=== PATIENT | female | born 1940 | race Caucasian/White ===

== ENCOUNTER 2023-04-27 09:14 | Inpatient (IN) | payer MEDICARE, SELFPAY ==
[2023-04-27] VITALS (10 sets, daily range): BP systolic 119–187; BP diastolic 58–96; PULSE 93–109; RESP 16–20; TEMP 36.3–36.7; O2SAT 92–98; BMI 26.0
--- NOTE | ~2023-04-27 | XR_ITS ---
EXAMINATION: XR hip RT 2V w AP pelvis DATE: 04/27/2023 10:00 INDICATION: Right hip pain. TECHNIQUE: An anteroposterior view of the pelvis and 2 views of right hip were obtained. COMPARISON: None. FINDINGS: There is a subcapital fracture of right femoral neck. The distal fracture fragment demonstr ates impaction. There is mild right hip osteoarthritis and advanced left hip osteoarthritis. There is moderate lumbar spondylosis. IMPRESSION: 1. Subcapital fracture of right femoral neck. 2. Mild right hip osteoarthritis and advanced left hip osteoarthritis. Reviewed, dictated and finalized at location A. ER CRAB
--- NOTE | ~2023-04-27 | CT_ITS ---
EXAMINATION: CT brain wo con DATE: 04/27/2023 10:06 INDICATION: Head injury. TECHNIQUE: Computed tomography (CT) of the head was performed without intravenous contrast. The mA wa s adjusted according to patient size. Iterative reconstruction technique was employed. The dose-lengt h product was 529.67 mGy-cm. COMPARISON: None FINDINGS: There is an old infarct in the left occipital lobe. There are scattered areas of low attenu ation in the cerebral white matter and deep dewitt nuclei. There is no intracranial hemorrhage, acute i nfarction, or abnormal intracranial mass lesion. The ventricles are normal in size. There is mild muc osal thickening in the paranasal sinuses. There are likely changes of right ocular lens replacement s urgery. The mastoid air cells are normal. IMPRESSION: 1. 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 2. Extensive nonspecific cerebral white matter disease and disease of the deep dewitt nuclei, which lik jamil represents chronic small vessel ischemic disease. Reviewed, dictated and finalized at location A. LINE REPAIRER IMPRESSION: 1. 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 2. Extensive nonspecific cerebral white matter disease and disease of the deep dewitt nuclei, which likely represents chronic small vessel ischemic disease.
--- NOTE | ~2023-04-27 | XR_ITS ---
EXAMINATION: XR surgery orthopedic DATE: 04/28/2023 8:45 SALES REPRESENTATIVE MEATS INDICATION: RIGHT HIP PINNING . TECHNIQUE: 4 fluoroscopic images of the right hip were obtained during right hip pinning performed by the surgeon. I was not present in the operating room. Fluoroscopy exposure time was 38.6 seconds. r Kerma 6.7894 mGy. DAP 0.1346 mGym2. COMPARISON: CT right hip 04/27/2023 FINDINGS: Mildly angulated and displaced subcapital fracture of the right femoral neck. 3 cannulated screws fix the fracture into near-anatomic alignment. IMPRESSION: Fluoroscopic documentation of right hip pinning. Please refer to the operative note for complete proc edural details . Reviewed, dictated and finalized at location K. S REPRESENTATIVE MEATS IMPRESSION: Fluoroscopic documentation of right hip pinning. Please refer to the operative note for complete procedural details .
--- NOTE | ~2023-04-27 | CT_ITS ---
Clinical Indication: Pulmonary embolus CT Scan of the Chest with Contrast: Technique: Contiguous sections were acquired throughout the chest after intravenous administration of 100 cc of Omnipaque 350. Dose reduction technique was used on this scan by utilizing automated expos ure control and iterative reconstruction technique. The dose-length product (DLP) was 209.11 mGy-cm. Findings: There is no evidence of any significant mediastinal, hilar or axillary lymphadenopathy. There is no f illing defect in the pulmonary arterial tree to suggest pulmonary embolus. There is no evidence of ao rtic dissection or aneurysm. There is no evidence of pleural or pericardial effusion. Calcified left lower lobe granuloma present. There are focal areas of minimal pulmonary scarring. Images through the upper abdomen reveal no abnormalities. Impression: No evidence of pulmonary embolus, aortic dissection, or aortic aneurysm. No significant pulmonary abnormality. Reviewed, dictated and finalized at [facility]. AL SERVICES TECHNICIAN Impression: No evidence of pulmonary embolus, aortic dissection, or aortic aneurysm. No significant pulmonary abnormality.
--- NOTE | ~2023-04-27 | XR_ITS ---
EXAMINATION: XR chest 1V portable INDICATION: Shortness of breath TECHNIQUE: Portable AP chest at 1136 hours COMPARISON: None available FINDINGS: There is a nodular opacity of the left lower lung zone. No pleural effusion or pneumothorax . The cardiomediastinal silhouette is normal. IMPRESSION: 1. Nodular opacity of the left lower lung zone which could be infectious or inflammatory however foll ow-up with CT of the chest is recommended. Reviewed, dictated and finalized at location F. OR PRINCIPAL IMPRESSION: 1. Nodular opacity of the left lower lung zone which could be infectious or inf lammatory however follow-up with CT of the chest is recommended.
--- NOTE | ~2023-04-27 | CT_ITS ---
EXAMINATION: CT hip RT wo con DATE: 04/27/2023 13:51 INDICATION: Right hip pain. Fall. TECHNIQUE: Computed tomography (CT) of the right hip was performed without intravenous contrast. Auto mated exposure control and iterative reconstruction technique were employed. The dose-length product was 191.29 mGy-cm. COMPARISON: CT 04/27/2023 FINDINGS: Bone alignment is normal. There is a subcapital fracture of right femoral neck. The distal fracture fragment demonstrates impaction and 10 degrees valgus angulation. There is moderate right hi p osteoarthritis. IMPRESSION: 1. Subcapital fracture of right femoral neck. 2. Moderate right hip osteoarthritis. Reviewed, dictated and finalized at location A. ING WORKER
--- NOTE | 2023-04-27 09:19 | ED.FALL ---
HPI - Fall General Chief Complaint: Fall <Aisha Jones APRN - Last Filed: 04/27/23 12:46> Stated Complaint: glf yest, R hip pain, ?hallucinations <Aisha Jones APRN - Last Filed: 04/27/23 12:46> Time Seen by Provider: 04/27/23 09:14 <Aisha Jones APRN - Last Filed: 04/27/23 12:46> Source: patient and EMS <Aisha Jones APRN - Last Filed: 04/27/23 12:46> Mode of arrival: EMS <Aisha Jones APRN - Last Filed: 04/27/23 12:46> Limitations: physical limitation <Aisha Jones APRN - Last Filed: 04/27/23 12:46> History of Present Illness HPI Narrative: patient is a pleasant 82 yo female with past medical hx as noted below who presents to the ED today via EMS for evaluation after a ground level fall when going down into her basement. patient states that that happened today actually. she was going downstairs to grab depends because she has been urinating a lot lately and is supposed to get surgery on her left hip in 20 days. she fell on her right hip. she told RN she didn't hit her head but she states she did strike her head but didn't pass out or lose consciousness. She took 2 tramadol after this incident for left hip pain and then started to hallucinate she states she thought her granddaughter was over however she really was not. she states she cannot bear weight on the right lower leg due to hip pain. denies numbness/tingling to upper or lower extremities, chest pain, shortness of breath, dizziness, vision changes, fever, chills, n/v/d, pain with urination, urinary odor, neck pain, back pain, numbness to her groin, loss of control of bowels bladder, or any other symptoms. <Aisha Jones APRN - Last Filed: 04/27/23 12:46> Related Data Allergies/Adverse Reactions: Allergies Allergy/AdvReac Type Severity Reaction Status Date / Time No Known Allergies Allergy Verified 04/27/23 09:19 <Aisha Jones APRN - Last Filed: 04/27/23 12:46> Review of Systems Review of Systems: CONSTITUTIONAL: Denies fever, chills, or sweats. EYES: Denies visual changes, redness, or discharge. CARDIOVASCULAR: Denies chest pain, palpitations, or edema. RESPIRATORY: Denies cough or dyspnea. GASTROINTESTINAL: Denies abdominal pain, nausea, vomiting, or diarrhea. MUSCULOSKELETAL: +right hip pain into groin. +chronic pain to left hip. NEUROLOGIC: Denies headache, numbness, or weakness. PSYCHIATRIC: Denies anxiety or depression. +hallucinations after taking double dose of tramadol. <Aisha Jones APRN - Last Filed: 04/27/23 12:46> All systems reviewed & are unremarkable except as noted in HPI and below <Aisha Jones APRN - Last Filed: 04/27/23 12:46> PMFSH Past Medical History Medical History: Medical History (Updated 04/27/23 @ 17:41 by Guanakito Kaur MD) Anemia Subcapital fracture of right hip <Aisha Jones APRN - Last Filed: 04/27/23 12:46> Social History Social History: Social History (Updated 04/27/23 @ 16:27 by Chne Marcum PA-C) Social History: Surrogate medical decision maker: Carol Banks, granddaughter. Code status: Full code. <Aisha Jones APRN - Last Filed: 04/27/23 12:46> Exam Narrative: GENERAL: Well-appearing, elderly female resting on stretcher, well-nourished, and in no acute distress. HEAD: Normocephalic, atraumatic. EYES: PERRLA and EOMI. ENT: Nares clear, no rhinorrhea or epistaxis. Mucous membranes moist. NECK: Supple. CHEST: Clear to auscultation. No respiratory distress. HEART: Regular rate and rhythm. No murmur heard. Normal peripheral pulses. ABDOMEN: Soft, nontender, nondistended, normal active bowel sounds. EXTREMITIES: +tenderness to the right hip/groin. no obvious deformity, able to still bend the extremity-cannot bear weight. No edema. SKIN: Warm, dry, no rash. NEURO: No focal deficits. Alert and oriented x3. distal NV intact to BLE. PSYCH: Normal mood and affect. <Aisha Jones, RIC - Last Filed: 04/27/23 12:
--- NOTE | 2023-04-27 10:39 | ECG_ITS ---
Measurements Intervals [place] Rate: 101 P: 55 OK: 174 QRS: 8 QRSD: 85 T: 29 QT: 368 QTc: 478 Interpretive Statements SINUS TACHYCARDIA NONSPECIFIC T-WAVE ABNORMALITY ABNORMAL RHYTHM ECG NO PREVIOUS ECG AVAILABLE FOR COMPARISON Electronically Signed On 04-27-2023 15:13:25 COTTON TIPPER by Freya Pierson M.D.
[2023-04-27 10:42] LABS: Basophils Percent Auto 0.3 % (0.2-1.2); Eosinophils Percent Auto 0.3 % (0-4.4); Hematocrit 35.4 % (37.0-47.0); Hemoglobin 11.5 g/dL (12.0-15.0); Immature Granulocyte Absolute 0.02 K/mm3 (0.00-0.031); Immature Granulocyte Percent A 0.3 % (0-0.5); Lymphocytes Absolute Auto 0.57 K/mm3 (0.9-3.2); Lymphocytes Percent Auto 7.2 % (18.3-44.2); Mean Corpuscular HGB Conc 32.5 g/dl (32-36); Mean Corpuscular Volume 101.4 fl (80-100); Mean Platelet Volume 10.9 fl (7.4-10.4); Monocytes Absolute Auto 0.4 K/mm3 (0.1-0.6); Monocytes Percent Auto 4.6 % (2.6-8.5); Neutrophils Absolute Auto 6.9 K/mm3 (1.3-6.7); Neutrophils Percent Auto 87.3 % (45.5-73.1); Platelet Count Result 185 k/mm3 (150-375); Red Blood Count 3.49 M/mm3 (4.2-5.4); Red Cell Distribution Width 12.8 % (11.5-14.5); White Blood Count 7.9 K/mm3 (4.5-10.0)
[2023-04-27] MEDS: LIDOCAINE 5% PATCH 1 PATCH TRANSDERM (10:42)
[2023-04-27] MEDS: fentaNYL CITRATE INJ (*CRX) 100 MCG/2 ML VIAL 50 MCG IV PUSH (10:47)
[2023-04-27 10:48] LABS: Appearance Urine Clear (Clear); Bacteria Urine None Seen /hpf; Bilirubin Urine 2+ (Negative); Color Urine Dark Yellow (Yellow); Glucose Urine UA Negative (Negative); Ketones Urine 2+ mg/dL (Negative); Leukocyte Esterase Ur Trace LEU/UL (Negative); Nitrate Urine Negative (Negative); Non Pathogenic Casts 0-2; Protein Urine 1+ mg/dL (Negative); Specific Grav Ur 1.022 (1.001-1.035); Squamous Epithelial Cell Urine None seen /hpf (Few); WBC Urine 0-5 /hpf; pH Urine 6.5 (5.0-9.0)
[2023-04-27 10:51] LABS: Alanine Aminotransferase 17 U/L (6-35); Alkaline Phosphatase 76 U/L (38-126); Anion Gap 9 mmol/L (8-16); Aspartate Amino Transferase 25 U/L (14-36); Bilirubin,Total 1.7 mg/dL (0.2-1.3); Blood Urea Nitrogen 14 mg/dL (7-17); Calcium 9.4 mg/dL (8.4-10.2); Carbon Dioxide 27 mmol/L (22-30); Chloride 101 mmol/L (98-107); Estimated CRCL calculation 46 ml/min; Estimated Glomerular Filt Rate > 60; Glucose 111 mg/dL (65-110); Potassium 3.3 mmol/L (3.4-5.0); Sodium 137 mmol/L (137-145)
[2023-04-27 10:57] LABS: Add Urine Microscopic? YES
--- NOTE | 2023-04-27 13:01 | PC.NURSE ---
this RN called dietary and ordered a lunch tray at this time
[2023-04-27] MEDS: MORPHINE SULFATE (*CRX) 2 MG/ML INJ IV PUSH ×3 (13:22→21:39)
[2023-04-27] MEDS: POTASSIUM CHLORIDE 20 MEQ ER TABLET 40 MEQ PO (14:26)
--- NOTE | 2023-04-27 15:35 | ADMGEN ---
This patient, Elsa Vega, was admitted to 3 [facility] Surg Room 330-02 @ 1535. Patient/family oriented to hospital policies and general routines including ID bracelet, bed and alarms, visiting hours, pain management, procedures, bathroom and other care routines, personal items, smoking policy, room service/diet, and visiting hours. Information on how to activate the Rapid Response Team has been discussed. Patient/Family are encouraged to report perceived risks to care and to ask questions if they do not understand what they are told or what they should do.
--- NOTE | 2023-04-27 16:22 | PM.IMHP ---
H&P: HPI History of Present Illness Date/Time: 04/27/23 16:45 Chief Complaint: Right hip pain after fall. Narrative: This is an 82-year-old female who presented to the emergency department via EMS from home for evaluation of right hip pain after fall. The patient provides the following history. She seems to be a bit confused regarding time frame but provides the following history. Last night or the night before she walked down to the basement to get something out of a closet and when she opened the door she tripped on something ?because it was dark in there.? She fell onto her right side and had immediate pain in the right hip. She was able to crawl up stairs where she took 2 tramadol which she was recently prescribed for pain in her left hip which in fact is scheduled to be replaced in the coming weeks at [facility]. She had never taken 2 tramadol before and she tells me that she had some hallucinations after taking the medication. Today she apparently called her granddaughter who brought her in for evaluation due to ongoing pain and difficulties bearing weight. She denied head trauma and loss of consciousness in the fall and reports no other injuries. Her vital signs were stable on arrival to the emergency department. Imaging showed a subcapital fracture of the right femoral neck and she is being admitted in this setting for pain control and orthopedic consultation. Review of Systems Review of Systems: Twelve systems were reviewed. No recent cold or flu symptoms. She denies fever, chills, and sweats. No chest or pleuritic pain. She denies exertional chest pain. No orthopnea, paroxysmal nocturnal dyspnea, or lower extremity edema. She denies history of venous thromboembolism. Except as documented, all other systems were reviewed and are negative. [facility] Past Medical History Medical History (Updated 04/27/23 @ 23:52 by Chen Marcum PA-C) Anemia Depression Subcapital fracture of right hip Surgical History Surgical History (Updated 04/27/23 @ 23:52 by Chen Marcum PA-C) No history of major surgery within 1 month Family History Family History (Updated 04/27/23 @ 23:52 by Chen Marcum PA-C) Other Family history unknown Social History Social History Social History: Surrogate medical decision maker: Carol Banks, granddaughter. Code status: Full code. Smoking status: Former smoker Alcohol intake: current Substance use: never Substance use type: does not use Do You Feel Safe in your Home?: Yes Lack of Transportation: No Lack of Food: Never True Current Housing: I Have Housing Concerned About Future Housing: No Difficulty Paying Gas/Electric Bills: No Difficulty Paying for Meds: No Currently Unemployed: No Education: Decline to Answer Difficulty w/ Childcare or Family Care: No Spiritual care concerns: No Meds Home Medications and Allergies Home Medications Medication Instructions Recorded Confirmed Type gabapentin 300 mg capsule 300 mg PO DAILY 04/27/23 04/27/23 History gabapentin 300 mg capsule 600 mg PO QHS 04/27/23 04/27/23 History sertraline 100 mg tablet 100 mg PO DAILY 04/27/23 04/27/23 History Allergies Allergy/AdvReac Type Severity Reaction Status Date / Time No Known Allergies Allergy Verified 04/27/23 09:19 Vital Signs Vital Signs - 24 hr 04/27/23 09:13 04/27/23 10:43 04/27/23 11:16 Temperature 98.0 F Pulse Rate 106 H 102 H 93 Respiratory Rate 18 16 18 Blood Pressure 185/79 H 119/96 H 187/83 H Pulse Oximetry 95 96 98 Oxygen Delivery Room Air 04/27/23 12:21 04/27/23 12:58 04/27/23 14:59 Temperature Pulse Rate 97 103 H 109 H Respiratory Rate 18 18 17 Blood Pressure 165/71 H 165/71 H 147/58 H Pulse Oximetry 95 93 95 Oxygen Delivery 04/27/23 15:56 Temperature 98.1 F Pulse Rate 105 H Respiratory Rate 18 Blood Pressure 146/72 H Pulse Oximetry
--- NOTE | 2023-04-27 17:36 | PM.CNOR ---
Assessment and Plan Assessment and plan (1) Subcapital fracture of right hip: Qualifiers: Encounter type: initial encounter Fracture type: closed Qualified Code(s): S72.011A - Unspecified intracapsular fracture of right femur, initial encounter for closed fracture Code(s): S72.011A - Unspecified intracapsular fracture of right femur, initial encounter for closed fracture Status: Acute Plan 82-year-old female with an impacted right subcapital femoral neck fracture. I discussed the injury with her. Plan for pinning in-situ right subcapital femoral neck fracture tomorrow. Risks and potential complications were discussed in detail and questions answered. I did discuss the rehabilitation process with her. She was due to have her left hip replaced in the next few weeks so that will clearly need be put off for the next several months. Thank you for the consultation. History of Present Illness HPI Consult date: 04/27/23 Chief complaint: acte femoral head fracture Narrative: This document created with [id number] technology and is subject to technology sales consultant irregularities. 82-year-old female who fell yesterday evening at her home. She was evaluated today subcapital fracture. No other injuries this occurrence. History of anemia. Does not take Rx medication on a regular basis. Review of Systems Constitutional: Constitutional: Reports no additional constitutional complaints, Denies excessive sweating and Denies fatigue Eyes: Eyes: Reports no additional eye complaints ENT: Reports system reviewed and no additional complaints, except as documented Cardiovascular: Cardiovascular: Denies chest pain at rest and Denies dyspnea Respiratory: Respiratory: Reports no additional respiratory complaints and Denies dyspnea Gastrointestinal: Gastrointestinal: Reports no additional gastrointestinal complaints Musculoskeletal: Musculoskeletal: Reports as per HPI Integumentary/Breasts: Skin/Breast: Reports system reviewed and no additional complaints, except as docu Neurologic: Reports as per HPI Endocrine: Endocrine: Denies excessive sweating and Denies fatigue Hematologic/Lymphatic: Hematologic/Lymphatic: Denies easy bleeding and Denies easy bruising PMFSH Past Medical History Medical History (Updated 04/27/23 @ 17:41 by Guanakito Kaur MD) Anemia Subcapital fracture of right hip Social History Social History (Updated 04/27/23 @ 16:27 by Chen Marcum PA-C) Social History: Surrogate medical decision maker: Carol Banks, granddaughter. Code status: Full code. Meds Home Medications and Allergies Allergies Allergy/AdvReac Type Severity Reaction Status Date / Time No Known Allergies Allergy Verified 04/27/23 09:19 Vital Signs Vital Signs - 24 hr 04/27/23 09:13 04/27/23 10:43 04/27/23 11:16 Temperature 98.0 F Pulse Rate 106 H 102 H 93 Respiratory Rate 18 16 18 Blood Pressure 185/79 H 119/96 H 187/83 H Pulse Oximetry 95 96 98 Oxygen Delivery Room Air 04/27/23 12:21 04/27/23 12:58 04/27/23 14:59 Temperature Pulse Rate 97 103 H 109 H Respiratory Rate 18 18 17 Blood Pressure 165/71 H 165/71 H 147/58 H Pulse Oximetry 95 93 95 Oxygen Delivery 04/27/23 15:56 Temperature 98.1 F Pulse Rate 105 H Respiratory Rate 18 Blood Pressure 146/72 H Pulse Oximetry 93 Oxygen Delivery Exam Const: General: alert and awake; No acute distress Orientation/consciousness: patient oriented x3 HENMT: Head: normal to inspection Resp: Effort & Inspection: normal respiratory effort and able to speak in complete sentences Cardio: Peripheral pulses: other ( ) GI: Inspection: non-distended Skin: General skin exam: normal color Neuro: General: patient oriented x3 and moves all extremities Cognition (Neuro): normal cognition Speech: normal speech Extrem: Other: Exam of Right lower extremity shows no significant bruising over the hip. Right le
[2023-04-27 18:12] LABS: Iron 26 ug/dL (37-170)
[2023-04-27 18:21] LABS: Percent Iron Saturation 11 % (20-50)
[2023-04-27] MEDS: HYDROcodone/acetaminophen (*CRX) 5-325 MG TABLET 1 TAB PO (18:42)
[2023-04-27 19:21] LABS: Folic Acid 8.3 ng/mL (2.76->20)
[2023-04-28] VITALS (13 sets, daily range): BP systolic 118–166; BP diastolic 50–82; PULSE 72–116; RESP 14–20; TEMP 36.1–36.9; O2SAT 90–100
[2023-04-28] MEDS: HYDROcodone/acetaminophen (*CRX) 5-325 MG TABLET 1 TAB PO ×2 (00:12→20:32)
[2023-04-28 06:31] LABS: Hematocrit 35.8 % (37.0-47.0); Hemoglobin 11.5 g/dL (12.0-15.0); Mean Corpuscular HGB Conc 32.1 g/dl (32-36); Mean Corpuscular Hemoglobin 32.9 pg (26-34); Mean Corpuscular Volume 102.3 fl (80-100); Mean Platelet Volume 10.7 fl (7.4-10.4); Platelet Count Result 180 k/mm3 (150-375); Red Cell Distribution Width 12.9 % (11.5-14.5)
[2023-04-28 06:36] LABS: Alanine Aminotransferase 15 U/L (6-35); Albumin Level 3.9 g/dL (3.5-5.1); Alkaline Phosphatase 83 U/L (38-126); Anion Gap 9 mmol/L (8-16); Aspartate Amino Transferase 20 U/L (14-36); Blood Urea Nitrogen 14 mg/dL (7-17); Calcium 9.3 mg/dL (8.4-10.2); Carbon Dioxide 26 mmol/L (22-30); Chloride 102 mmol/L (98-107); Estimated CRCL calculation 41 ml/min; Estimated Glomerular Filt Rate > 60; Glucose 109 mg/dL (65-110); Potassium 3.6 mmol/L (3.4-5.0); Sodium 137 mmol/L (137-145)
[2023-04-28] MEDS: BUPIVACAINE/EPINEPHRINE 0.5% 50 ML VIAL 20 ML INFILTRATE (08:24)
[2023-04-28] MEDS: ceFAZolin 2 GM/D5W 50 ML 2 GM/50 ML BAG IVPB ×2 (08:35→16:14)
[2023-04-28] MEDS: LACTATED RINGERS 1,000 ML 30 ML IV CONT (09:24)
--- NOTE | 2023-04-28 09:24 | W.PM.PROC2 ---
Procedure Note - Detailed Date of Procedure 04/28/23 Pre-op Diagnosis Right subcapital femoral neck fracture Post-op Diagnosis Same Procedure Performed pinning in-situ right subcapital femoral neck fracture Surgeon Guanakito Kaur MD Hospital Pharmacy Technician Carol Jonas Anesthesia General Description of Procedure The patient was identified and proper site identified. She was taken to the operating room. After general anesthetic induction and intubation she was transferred to the fracture table positioning her in the usual manner 50 excision of right hip fracture. Care was taken to pad her torso and extremities. The fracture was examined fluoroscopically noted to be in the unchanged impacted position. The right hip and thigh was prepped and draped in the usual sterile fashion. 10 cubic centimeters of 0.5% Marcaine and epinephrine solution was injected into the subcutaneous tissue in the area of the incision. Longitudinal incision was made over the proximal aspect of the right femur laterally. Subcutaneous tissue sharply dissected. ID band was divided. Through this incision three pins were placed under fluoroscopic control into the femoral neck and head. Over these three pins 37.0 cannulated screws were placed and the pins removed. Overall hardware position was assessed fluoroscopically noted to be satisfactory. The wound was irrigated with sterile saline. ID band reapproximated with 0 Vicryl as was the deeper layers of the subcu. Skin reapproximated with three 0 V lock and susan. Sterile dressing was applied. Patient tolerated procedure well. She was awakened, extubated taken recovery area in stable condition. There were no known intraoperative complications. Estimated blood loss negligible. She received perioperative antibiotics. Estimated Blood Loss 10 Drains No Packing No Pathology None sent Complications No immediate complications Condition Stable Disposition PACU [facility] Billing Surgery - Charge Forward: Surgery Billing ([id number]; [id number])
--- NOTE | 2023-04-28 09:37 | WPDANESEPP ---
Anes - Eval Pre Procedure Procedure: Operation Date: 04/28/23 08:00 Proposed Procedures p Hip Pinning Cannulated Screws(Right) - Guanakito Kaur MD Date/Time: 04/28/23729 Pre Op Diagnosis: acte femoral head fracture Patient Data Age: 82 Gender: F Height: 1.63 m Weight: 64.3 kg Last Vital Signs Temp 36.1 C L 04/28/23 04:00 Pulse 116 H 04/28/23 04:00 Resp 18 04/28/23 04:00 BP 149/60 H 04/28/23 04:00 Pulse Ox 93 04/28/23 08:00 O2 Del Method Room Air 04/28/23 08:00 Allergies Allergy/AdvReac Type Severity Reaction Status Date / Time No Known Allergies Allergy Verified 04/27/23 09:19 Home Medications Medication Instructions Recorded Confirmed Type gabapentin 300 mg capsule 300 mg PO DAILY 04/27/23 04/27/23 History gabapentin 300 mg capsule 600 mg PO QHS 04/27/23 04/27/23 History sertraline 100 mg tablet 100 mg PO DAILY 04/27/23 04/27/23 History Laboratory Tests 04/27/23 04/27/23 04/28/23 10:27 17:48 06:02 WBC 7.9 K/mm3 8.0 K/mm3 (4.5-10.0) (4.5-10.0) RBC 3.49 L M/mm3 3.50 L M/mm3 (4.2-5.4) (4.2-5.4) Hgb 11.5 L g/dL 11.5 L g/dL (12.0-15.0) (12.0-15.0) Hct 35.4 L % 35.8 L % (37.0-47.0) (37.0-47.0) MCV 101.4 H fl 102.3 H fl (80-100) (80-100) MCH 33.0 pg 32.9 pg (26-34) (26-34) MCHC 32.5 g/dl 32.1 g/dl (32-36) (32-36) RDW 12.8 % 12.9 % (11.5-14.5) (11.5-14.5) Plt Count 185 k/mm3 180 k/mm3 (150-375) (150-375) MPV 10.9 H fl 10.7 H fl (7.4-10.4) (7.4-10.4) Immature Gran % (Auto) 0.3 % (0-0.5) Neut % (Auto) 87.3 H % (45.5-73.1) Lymph % (Auto) 7.2 L % (18.3-44.2) [place] % (Auto) 4.6 % (2.6-8.5) Eos % (Auto) 0.3 % (0-4.4) Baso % (Auto) 0.3 % (0.2-1.2) Lymph # (Auto) 0.57 L K/mm3 (0.9-3.2) [place] # (Auto) 0.4 K/mm3 (0.1-0.6) Eos # (Auto) 0.0 K/mm3 (0-0.3) Baso # (Auto) 0.0 K/mm3 (0.0-0.1) Abs Immat Gran (auto) 0.02 K/mm3 (0.00-0.031) Absolute Neuts (auto) 6.9 H K/mm3 (1.3-6.7) Absolute Nucleated RBC 0.0 K/mm3 (0.0-0.012) Nucleated RBC % 0.0 % (0.0-0.2) Sodium 137 mmol/L 137 mmol/L (137-145) (137-145) Potassium 3.3 L mmol/L 3.6 mmol/L (3.4-5.0) (3.4-5.0) Chloride 101 mmol/L 102 mmol/L (98-107) (98-107) Carbon Dioxide 27 mmol/L 26 mmol/L (22-30) (22-30) Anion Gap 9 mmol/L 9 mmol/L (8-16) (8-16) BUN 14 mg/dL 14 mg/dL (7-17) (7-17) Creatinine 0.70 mg/dL 0.80 mg/dL (0.7-1.0) (0.7-1.0) Estim Creat Clear Calc 46 ml/min 41 ml/min Estimated GFR > 60 > 60 (59 - ) (59 - ) Glucose 111 H mg/dL 109 mg/dL (65-110) (65-110) Calcium 9.4 mg/dL 9.3 mg/dL (8.4-10.2) (8.4-10.2) Magnesium 2.0 mg/dL (1.6-2.3) Iron 26 L ug/dL (37-170) TIBC 243 L ug/dL (261-462) % Saturation 11 L % (20-50) Ferritin 346.00 H ng/mL (11.1-264) Total Bilirubin 1.7 H mg/dL 2.0 H mg/dL (0.2-1.3) (0.2-1.3) AST 25 U/L 20 U/L (14-36) (14-36) ALT 17 U/L 15 U/L (6-35) (6-35) Alkaline Phosphatase 76 U/L 83 U/L (38-126) (38-126) Total Protein 7.0 g/dL 7.0 g/dL (6.3-8.2) (6.3-8.2) Albumin 4.0 g/dL 3.9 g/dL (3.5-5.1) (3.5-5.1) Vitamin B12 776.0 pg/mL (239-931) Folate 8.3 ng/mL (2.76->20) TSH (Reflex) 2.650 uIU/mL (0.465-4.68) Urine Color Dark yellow (Yellow) Urine Appearance Clear (Clear) Urine pH 6.5 (5.0-9.0) Ur Specific [place] 1.022 (1.001-1.035) Urine Protein 1+ H mg/dL (Negative) Urine Glucose (UA) Negative mg/dL (Negative) Urine Ketones 2+ H mg/dL (Negative) Ur Blood (Man) Non-hemolyzed
--- NOTE | 2023-04-28 09:51 | SUR.PHASEI ---
0950: Simple mask removed.
[2023-04-28] MEDS: MORPHINE SULFATE (*CRX) 2 MG/ML INJ IV PUSH (10:56)
[2023-04-28] MEDS: GABAPENTIN 300 MG CAPSULE PO (12:47)
[2023-04-28] MEDS: SERTRALINE HCL 50 MG TABLET 100 MG PO (12:47)
[2023-04-28] MEDS: HYDROcodone/acetaminophen (*CRX) 5-325 MG TABLET 2 TAB PO (12:49)
--- NOTE | 2023-04-28 12:56 | PM.IMPN ---
Progress Note: A&P Assessment and Plan (1) Subcapital fracture of right hip: Qualifiers: Encounter type: initial encounter Fracture type: closed Qualified Code(s): S72.011A - Unspecified intracapsular fracture of right femur, initial encounter for closed fracture Code(s): S72.011A - Unspecified intracapsular fracture of right femur, initial encounter for closed fracture Status: Acute Assessment and Plan: For OR today for ORIF (2) Ground-level fall: Code(s): W18.30XA - Fall on same level, unspecified, initial encounter Status: Acute Assessment and Plan: PT/OT on board PRN pain control (3) Hypokalemia: Code(s): E87.6 - Hypokalemia Status: Acute (4) Anemia: Code(s): D64.9 - Anemia, unspecified Status: Acute Assessment and Plan: isat 11 start PO iron replacement and b12/folate pending monitor H and H (5) Elevated blood pressure reading: Code(s): R03.0 - Elevated blood-pressure reading, without diagnosis of hypertension Status: Acute Plan The patient presented to the emergency department for evaluation of right hip pain after a ground level fall. Labs, imaging, EKG, and all reports were personally reviewed. Imaging shows a subcapital fracture of the right hip. She is supposed to have her left hip replaced in about 3 weeks time at [facility] but declined transfer to that facility. Dr. Kaur has been consulted and his input is appreciated. She will be NPO after midnight for probable surgery tomorrow. Preop EKG is pending but she gives no history to suggest that she would be at increased risk for cardiac complications in a noncardiac related surgery and can likely proceed with surgery without further workup as long as the EKG is okay. Labs today were significant for a mild hypokalemia and mild macrocytic anemia. Potassium will be replaced and monitored. Check iron, B12, and folate levels. Blood pressures have been running high, likely due to pain. She denies history of hypertension. Continue to monitor vital signs closely. Initiate fall precautions. Her home medications will be reviewed and resumed as appropriate. Findings and treatment plan were discussed with the patient. Questions were solicited and answered to satisfaction. The patient's medical management will be taken over by the hospitalist team in a.m. Subjective Date/time seen: 04/28/23 12:56 Interval history: In OR for Hip repair Review of Systems Review of Systems: Twelve systems were reviewed. No recent cold or flu symptoms. She denies fever, chills, and sweats. No chest or pleuritic pain. She denies exertional chest pain. No orthopnea, paroxysmal nocturnal dyspnea, or lower extremity edema. She denies history of venous thromboembolism. Except as documented, all other systems were reviewed and are negative. All systems reviewed & are unremarkable except as noted in HPI and below Exam Narrative: General: Well-developed female in the semi-Rhoades position no acute distress. Weight: 68.9 kg. BMI: 26.1. HEENT: Normocephalic, atraumatic. PERRL, EOMI. Sclera anicteric. Oral mucosa moist. Neck: Supple. Respiratory: Lungs are clear to auscultation bilaterally. Cardiovascular: Regular rate and rhythm with S1-S2. No significant murmur. Gastrointestinal: Abdomen is soft, nontender, and nondistended with positive bowel sounds. Skin: Warm and dry. No rash or lesions on limited exam. Musculoskeletal: She is tender to palpation over the right anterior lateral hip. No obvious deformities noted. Extremities: No cyanosis, clubbing, or edema. Radial and pedal pulses intact. Neurological: Alert. Cranial nerves 2-12 are grossly intact. No gross focal deficits to casual conversation. Psychiatric: Pleasant and cooperative with appropriate mood and affect. Seems a bit forgetful. Objective Data Vital Signs Vital Signs: Vital Signs - 24 hr 04/27/23 12:58 04/27/23 14:59
[2023-04-28] MEDS: ASPIRIN 325 MG ENTERIC TABLET PO (16:14)
[2023-04-28] MEDS: FERROUS SULFATE 325 MG TABLET DR PO (16:15)
[2023-04-28] MEDS: SENNA/DOCUSATE SODIUM TABLET 2 TAB PO (16:15)
[2023-04-28] MEDS: FAMOTIDINE 20 MG TABLET PO (20:31)
[2023-04-28] MEDS: GABAPENTIN 300 MG CAPSULE 600 MG PO (20:31)
[2023-04-29] VITALS (7 sets, daily range): BP systolic 121–139; BP diastolic 46–87; PULSE 77–96; RESP 16–18; TEMP 35.8–36.9; O2SAT 91–95
[2023-04-29] MEDS: ceFAZolin 2 GM/D5W 50 ML 2 GM/50 ML BAG IVPB ×2 (01:18→08:35)
[2023-04-29 06:15] LABS: Basophils Percent Auto 0.2 % (0.2-1.2); Eosinophils Absolute Auto 0.1 K/mm3 (0-0.3); Eosinophils Percent Auto 1.5 % (0-4.4); Hematocrit 33.6 % (37.0-47.0); Hemoglobin 10.7 g/dL (12.0-15.0); Immature Granulocyte Absolute 0.02 K/mm3 (0.00-0.031); Immature Granulocyte Percent A 0.2 % (0-0.5); Lymphocytes Absolute Auto 1.11 K/mm3 (0.9-3.2); Lymphocytes Percent Auto 13.5 % (18.3-44.2); Mean Corpuscular HGB Conc 31.8 g/dl (32-36); Mean Corpuscular Hemoglobin 32.6 pg (26-34); Mean Corpuscular Volume 102.4 fl (80-100); Mean Platelet Volume 10.9 fl (7.4-10.4); Monocytes Absolute Auto 0.6 K/mm3 (0.1-0.6); Monocytes Percent Auto 7.3 % (2.6-8.5); Neutrophils Absolute Auto 6.4 K/mm3 (1.3-6.7); Neutrophils Percent Auto 77.3 % (45.5-73.1); Platelet Count Result 208 k/mm3 (150-375); Red Blood Count 3.28 M/mm3 (4.2-5.4); Red Cell Distribution Width 12.7 % (11.5-14.5); White Blood Count 8.3 K/mm3 (4.5-10.0)
[2023-04-29 06:24] LABS: Anion Gap 8 mmol/L (8-16); Blood Urea Nitrogen 20 mg/dL (7-17); Calcium 8.9 mg/dL (8.4-10.2); Carbon Dioxide 28 mmol/L (22-30); Chloride 103 mmol/L (98-107); Estimated CRCL calculation 37 ml/min; Estimated Glomerular Filt Rate 60; Glucose 116 mg/dL (65-110); Potassium 3.7 mmol/L (3.4-5.0); Sodium 139 mmol/L (137-145)
--- NOTE | 2023-04-29 07:47 | PM.PNORT ---
Progress Note: A&P Assessment and Plan (1) Subcapital fracture of right hip: Qualifiers: Encounter type: initial encounter Fracture type: closed Qualified Code(s): S72.011A - Unspecified intracapsular fracture of right femur, initial encounter for closed fracture Code(s): S72.011A - Unspecified intracapsular fracture of right femur, initial encounter for closed fracture Status: Acute Plan 82-year-old female postop day one status post right hip pinning for subcapital femoral neck fracture. Doing well. Surgery discussed with patient. Postoperative instructions again reviewed. Will likely need rehab placement. Following. Subjective Subjective Date/Time Seen: 04/29/23 07:47 Post Op day: 1 Interval history: 82-year-old female who is postop day one status post pinning in-situ right subcapital femoral neck fracture. She is very comfortable. Was able to tolerate being in the chair yesterday. Exam Const: General: cooperative, comfortable and no acute distress GI: Inspection: non-distended Extrem: Other: Right hip wound dry. No bruising and minimal swelling. Neurovascular status intact right lower extremity. Exam otherwise unremarkable. Objective Data Vital Signs Vital Signs: Vital Signs - 24 hr 04/28/23 08:00 04/28/23 09:24 04/28/23 09:40 Temperature 98 F Pulse Rate 93 111 H Respiratory Rate 14 18 Blood Pressure 154/67 H 134/81 Pulse Oximetry 93 99 100 Oxygen Delivery Room Air Simple Face Mask Simple Face Mask Oxygen Flow Rate 8 8 04/28/23 09:55 04/28/23 10:10 04/28/23 13:40 Temperature Pulse Rate 112 H 88 Respiratory Rate 18 20 Blood Pressure 143/82 H 158/77 H Pulse Oximetry 94 100 Oxygen Delivery Room Air Nasal Cannula Room Air Oxygen Flow Rate 2 04/28/23 10:22 04/28/23 10:37 04/28/23 11:07 Temperature 98.0 F 98.0 F 98.4 F Pulse Rate 88 89 102 H Respiratory Rate 14 16 16 Blood Pressure 166/82 H 153/67 H 153/64 H Pulse Oximetry 94 97 97 Oxygen Delivery Oxygen Flow Rate 04/28/23 12:07 04/28/23 16:00 04/28/23 20:00 Temperature 97.9 F 97.9 F 97.3 F L Pulse Rate 95 72 84 Respiratory Rate 16 16 16 Blood Pressure 130/50 L 124/64 118/62 Pulse Oximetry 100 94 94 Oxygen Delivery Oxygen Flow Rate 04/28/23 20:00 04/29/23 00:00 04/29/23 04:00 Temperature 96.7 F L 96.4 F L Pulse Rate 77 85 Respiratory Rate 16 16 Blood Pressure 128/60 139/68 Pulse Oximetry 91 95 Oxygen Delivery Room Air Oxygen Flow Rate 04/29/23 07:40 Temperature 97.6 F Pulse Rate 92 Respiratory Rate 16 Blood Pressure 137/69 Pulse Oximetry 94 Oxygen Delivery Oxygen Flow Rate Intake/Output Intake/Output: Intake & Output 04/26/23 04/27/23 04/28/23 04/29/23 23:59 23:59 23:59 23:59 Intake Total 200 / 200 750 / 750 200 / 200 Output Total 200 / 200 840 / 840 250 / 250 Balance 0 / 0 -90 / -90 -50 / -50 Meds/Results Medications: Active Medications Generic Name Dose Route Start Last Admin Trade Name Freq PRN Reason Stop Dose Admin Acetaminophen 650 mg 04/28/23 10:22 Acetaminophen 325 Mg Tablet PO Q6H PRN Mild Pain (1-3) or Fever Hydrocodone Bitart/Acetaminophen 1 tab 04/28/23 10:22 04/28/23 20:32 Hydrocodone/Acetaminophen (*Crx) 5-325 Mg Tablet PO 1 tab Q3H PRN Administration Pain Rated 4-6 Hydrocodone Bitart/Acetaminophen 2 tab 04/28/23 10:22 04/28/23 12:49 Hydrocodone/Acetaminophen (*Crx) 5-325 Mg Tablet PO 04/30/23 10:21 2 tab Q6H PRN Administration Pain Rated 7-10 Aspirin 325 mg 04/28/23 17:00 04/28/23 16:14 Aspirin 325 Mg Enteric Tablet PO 325 mg BID JOSE Administration Famotidine 20 mg 04/28/23 21:00 04/28/23 20:31 Famotidine 20 Mg Tablet PO 20 mg Q12HR JOSE Administration Ferrous Sulfate 325 mg 04/28/23 13:10 04/28/23 16:15 Ferrous Sulfate [address] PO 325 mg DAILY@0800 JOSE Administration Gabapentin 300 mg 04/28/23 09:00
--- NOTE | 2023-04-29 08:04 | WPDANESPN ---
Anes - Prog Note Post-Op Date/Time: 04/29/23 08:04 Vital Signs: Last Vital Signs Temp 36.4 C 04/29/23 07:40 Pulse 92 04/29/23 07:40 Resp 16 04/29/23 07:40 BP 137/69 04/29/23 07:40 Pulse Ox 94 04/29/23 07:40 O2 Del Method Room Air 04/28/23 20:00 O2 Flow Rate 2 04/28/23 10:10 Pain Score (VAS): 2 I/O: Intake & Output 04/28/23 04/29/23 04/29/23 23:59 07:59 15:59 Intake Total 350 200 Output Total 200 250 Balance 150 -50 Laboratory Tests 04/29/23 05:55 04/29/23 05:55 04/29/23 05:55 WBC 8.3 RBC 3.28 L Hgb 10.7 L Hct 33.6 L MCV 102.4 H MCH 32.6 MCHC 31.8 L RDW 12.7 Plt Count 208 MPV 10.9 H Immature Gran % (Auto) 0.2 Neut % (Auto) 77.3 H Lymph % (Auto) 13.5 L [place] % (Auto) 7.3 Eos % (Auto) 1.5 Baso % (Auto) 0.2 Lymph # (Auto) 1.11 [place] # (Auto) 0.6 Eos # (Auto) 0.1 Baso # (Auto) 0.0 Abs Immat Gran (auto) 0.02 Absolute Neuts (auto) 6.4 Absolute Nucleated RBC 0.0 Nucleated RBC % 0.0 Sodium 139 Potassium 3.7 Chloride 103 Carbon Dioxide 28 Anion Gap 8 BUN 20 H Creatinine 0.90 Estim Creat Clear Calc 37 Estimated GFR 60 Glucose 116 H Calcium 8.9 Patient Feedback: Patient satisfied with anesthetic care.
--- NOTE | 2023-04-29 08:08 | PCOTNOTE ---
The patient treatment was not able to be completed. Patient eating breakfast .Will plan to continue treatment per plan of care.
[2023-04-29] MEDS: FAMOTIDINE 20 MG TABLET PO ×2 (08:36→20:50)
[2023-04-29] MEDS: ASPIRIN 325 MG ENTERIC TABLET PO ×2 (08:36→17:25)
[2023-04-29] MEDS: GABAPENTIN 300 MG CAPSULE PO (08:36)
[2023-04-29] MEDS: SERTRALINE HCL 50 MG TABLET 100 MG PO (08:36)
[2023-04-29] MEDS: FERROUS SULFATE 325 MG TABLET DR PO (08:36)
[2023-04-29] MEDS: HYDROcodone/acetaminophen (*CRX) 5-325 MG TABLET 1 TAB PO ×2 (09:48→14:00)
--- NOTE | 2023-04-29 14:12 | PM.IMPN ---
Progress Note: A&P Assessment and Plan (1) Subcapital fracture of right hip: Qualifiers: Encounter type: initial encounter Fracture type: closed Qualified Code(s): S72.011A - Unspecified intracapsular fracture of right femur, initial encounter for closed fracture Code(s): S72.011A - Unspecified intracapsular fracture of right femur, initial encounter for closed fracture Status: Acute Assessment and Plan: s/p repair continue PRN pain control For SNF tomorrow (2) Ground-level fall: Code(s): W18.30XA - Fall on same level, unspecified, initial encounter Status: Acute Assessment and Plan: PT/OT on board PRN pain control (3) Hypokalemia: Code(s): E87.6 - Hypokalemia Status: Acute (4) Anemia: Code(s): D64.9 - Anemia, unspecified Status: Acute Assessment and Plan: isat 11 start PO iron replacement and b12/folate wnl monitor H and H (5) Elevated blood pressure reading: Code(s): R03.0 - Elevated blood-pressure reading, without diagnosis of hypertension Status: Acute Assessment and Plan: resolved, likely from pain Plan DVT prophylaxis on sq lovenox Subjective Date/time seen: 04/29/23 14:12 Interval history: 82-year-old female who is postop day one status post pinning in-situ right subcapital femoral neck fracture. S/p hip repair to discharge to SNF tomorrow Review of Systems Review of Systems: Twelve systems were reviewed. No recent cold or flu symptoms. She denies fever, chills, and sweats. No chest or pleuritic pain. She denies exertional chest pain. No orthopnea, paroxysmal nocturnal dyspnea, or lower extremity edema. She denies history of venous thromboembolism. Except as documented, all other systems were reviewed and are negative. All systems reviewed & are unremarkable except as noted in HPI and below Exam Narrative: General: Well-developed female in the semi-Rhoades position no acute distress. Weight: 68.9 kg. BMI: 26.1. HEENT: Normocephalic, atraumatic. PERRL, EOMI. Sclera anicteric. Oral mucosa moist. Neck: Supple. Respiratory: Lungs are clear to auscultation bilaterally. Cardiovascular: Regular rate and rhythm with S1-S2. No significant murmur. Gastrointestinal: Abdomen is soft, nontender, and nondistended with positive bowel sounds. Skin: Warm and dry. No rash or lesions on limited exam. Musculoskeletal: She is tender to palpation over the right anterior lateral hip. No obvious deformities noted. Extremities: No cyanosis, clubbing, or edema. Radial and pedal pulses intact. Neurological: Alert. Cranial nerves 2-12 are grossly intact. No gross focal deficits to casual conversation. Psychiatric: Pleasant and cooperative with appropriate mood and affect. Seems a bit forgetful. Objective Data Vital Signs Vital Signs: Vital Signs - 24 hr 04/28/23 16:00 04/28/23 20:00 04/28/23 20:00 Temperature 97.9 F 97.3 F L Pulse Rate 72 84 Respiratory Rate 16 16 Blood Pressure 124/64 118/62 Pulse Oximetry 94 94 Oxygen Delivery Room Air 04/29/23 00:00 04/29/23 04:00 04/29/23 07:40 Temperature 96.7 F L 96.4 F L 97.6 F Pulse Rate 77 85 92 Respiratory Rate 16 16 16 Blood Pressure 128/60 139/68 137/69 Pulse Oximetry 91 95 94 Oxygen Delivery 04/29/23 08:35 Temperature Pulse Rate Respiratory Rate Blood Pressure Pulse Oximetry Oxygen Delivery Room Air Intake/Output Intake/Output: Intake & Output 04/26/23 04/27/23 04/28/23 04/29/23 23:59 23:59 23:59 23:59 Intake Total 200 750 550 Output Total 200 840 250 Balance 0 -90 300 Meds/Results Medications: Active Medications Generic Name Dose Route Start Last Admin Trade Name Románq PRN Reason Stop Dose Admin Acetaminophen 650 mg 04/28/23 10:22 Acetaminophen 325 Mg Tablet PO Q6H PRN Mild Pain (1-3) or Fever Hydrocodone Bitart/Acetaminophen 1 tab 04/28/23 10:22 04/29/23 14:
[2023-04-29] MEDS: GABAPENTIN 300 MG CAPSULE 600 MG PO (20:49)
[2023-04-30] VITALS: BP 150/61; PULSE 97; RESP 16; TEMP 35.6; O2SAT 94
[2023-04-30 04:50] VITALS: BP 148/67; PULSE 84; RESP 20; TEMP 35.9; O2SAT 90
[2023-04-30 06:40] LABS: Basophils Percent Auto 0.6 % (0.2-1.2); Eosinophils Absolute Auto 0.3 K/mm3 (0-0.3); Hematocrit 34.2 % (37.0-47.0); Hemoglobin 10.9 g/dL (12.0-15.0); Immature Granulocyte Absolute 0.03 K/mm3 (0.00-0.031); Immature Granulocyte Percent A 0.5 % (0-0.5); Lymphocytes Absolute Auto 1.27 K/mm3 (0.9-3.2); Lymphocytes Percent Auto 20.5 % (18.3-44.2); Mean Corpuscular HGB Conc 31.9 g/dl (32-36); Mean Corpuscular Hemoglobin 32.8 pg (26-34); Mean Platelet Volume 10.9 fl (7.4-10.4); Monocytes Absolute Auto 0.6 K/mm3 (0.1-0.6); Monocytes Percent Auto 9.3 % (2.6-8.5); Neutrophils Percent Auto 64.1 % (45.5-73.1); Platelet Count Result 214 k/mm3 (150-375); Red Blood Count 3.32 M/mm3 (4.2-5.4); Red Cell Distribution Width 12.6 % (11.5-14.5); White Blood Count 6.2 K/mm3 (4.5-10.0)
[2023-04-30 06:56] LABS: Alanine Aminotransferase 15 U/L (6-35); Albumin Level 3.3 g/dL (3.5-5.1); Alkaline Phosphatase 90 U/L (38-126); Anion Gap 8 mmol/L (8-16); Aspartate Amino Transferase 28 U/L (14-36); Bilirubin,Total 0.5 mg/dL (0.2-1.3); Blood Urea Nitrogen 20 mg/dL (7-17); Calcium 8.9 mg/dL (8.4-10.2); Carbon Dioxide 28 mmol/L (22-30); Chloride 105 mmol/L (98-107); Estimated CRCL calculation 37 ml/min; Estimated Glomerular Filt Rate 60; Glucose 92 mg/dL (65-110); Potassium 3.9 mmol/L (3.4-5.0); Sodium 141 mmol/L (137-145)
--- NOTE | 2023-04-30 07:57 | PM.IMPN ---
Progress Note: A&P Assessment and Plan (1) Subcapital fracture of right hip: Qualifiers: Encounter type: initial encounter Fracture type: closed Qualified Code(s): S72.011A - Unspecified intracapsular fracture of right femur, initial encounter for closed fracture Code(s): S72.011A - Unspecified intracapsular fracture of right femur, initial encounter for closed fracture Status: Acute Assessment and Plan: -Pod: 2 -continue p.r.n. pain control -awaiting SNF/rehabilitation placement -continue PT as tolerated (2) Anemia: Code(s): D64.9 - Anemia, unspecified Status: Acute Assessment and Plan: isat 11 -continue p.o. iron replacement and B12/folate wnl -continue to monitor H&H daily (3) Elevated blood pressure reading: Code(s): R03.0 - Elevated blood-pressure reading, without diagnosis of hypertension Status: Acute Assessment and Plan: Resolved/acute Resolved, likely from pain (4) Hypokalemia: Code(s): E87.6 - Hypokalemia Status: Resolved (5) Ground-level fall: Code(s): W18.30XA - Fall on same level, unspecified, initial encounter Status: Acute Assessment and Plan: -continue fall precautions Subjective Date/time seen: 04/30/23 07:57 Interval history: Chief Complaint: Right hip pain after fall. Narrative: This is an 82-year-old female who presented to the emergency department via EMS from home for evaluation of right hip pain after fall. The patient provides the following history. She seems to be a bit confused regarding time frame but provides the following history. Last night or the night before she walked down to the basement to get something out of a closet and when she opened the door she tripped on something ?because it was dark in there.? She fell onto her right side and had immediate pain in the right hip. She was able to crawl up stairs where she took? 2 tramadol which she was recently prescribed for pain in her left hip which in fact is scheduled to be replaced in the coming weeks at [facility]. She had never taken 2 tramadol before and she tells me that she had some hallucinations after taking the medication. Today she apparently called her granddaughter who brought her in for evaluation due to ongoing pain and difficulties bearing weight. She denied head trauma and loss of consciousness in the fall and reports no other injuries. Her vital signs were stable on arrival to the emergency department. Imaging showed a subcapital fracture of the right femoral neck and she is being admitted in this setting for pain control and orthopedic consultation. Date/time seen: 04/29/23? 14:12 Interval history: ? 82-year-old female who is postop day one status post pinning in-situ right subcapital femoral neck fracture.? S/p hip repair to discharge to SNF tomorrow 04/30/2023:pt seen this a.m by the bedside she denies any overnight events. She is pod: 2, physical therapy is by the bedside patient is participating without any complaints of pain. Review of Systems Review of Systems: Twelve systems were reviewed. No recent cold or flu symptoms. She denies fever, chills, and sweats. No chest or pleuritic pain. She denies exertional chest pain. No orthopnea, paroxysmal nocturnal dyspnea, or lower extremity edema. She denies history of venous thromboembolism. Except as documented, all other systems were reviewed and are negative. All systems reviewed & are unremarkable except as noted in HPI and below Exam Narrative: General: Well-developed female in the semi-Rhoades position no acute distress. Weight: 68.9 kg. BMI: 26.1. HEENT: Normocephalic, atraumatic. PERRL, EOMI. Sclera anicteric. Oral mucosa moist. Neck: Supple. Respiratory: Lungs are clear to auscultation bilaterally. Cardiovascular: Regular rate and rhythm with S1-S2. No significant murmur. Gastrointestinal: Abdomen is soft, nontender, and nondistended
[2023-04-30] MEDS: FAMOTIDINE 20 MG TABLET PO ×2 (08:27→21:31)
[2023-04-30] MEDS: ASPIRIN 325 MG ENTERIC TABLET PO ×2 (08:27→16:57)
[2023-04-30] MEDS: GABAPENTIN 300 MG CAPSULE PO (08:27)
[2023-04-30] MEDS: FERROUS SULFATE 325 MG TABLET DR PO (08:27)
[2023-04-30] MEDS: SERTRALINE HCL 50 MG TABLET 100 MG PO (08:27)
--- NOTE | 2023-04-30 11:04 | PCOTNOTE ---
The patient treatment was not able to be completed. Patient just finished PT and was having some pain. Will come back after lunch. Will plan to continue treatment per plan of care.
[2023-04-30] MEDS: HYDROcodone/acetaminophen (*CRX) 5-325 MG TABLET 1 TAB PO ×2 (11:31→21:33)
--- NOTE | 2023-04-30 12:05 | PM.PNORT ---
Progress Note: A&P Assessment and Plan (1) Subcapital fracture of right hip: Qualifiers: Encounter type: initial encounter Fracture type: closed Qualified Code(s): S72.011A - Unspecified intracapsular fracture of right femur, initial encounter for closed fracture Code(s): S72.011A - Unspecified intracapsular fracture of right femur, initial encounter for closed fracture Status: Acute Assessment and Plan: Postop day two doing very well. Awaiting placement. [facility] Subjective Subjective Date/Time Seen: 04/30/23 12:05 Post Op day: 2 Principal diagnosis: Status post pinning in-situ right subcapital femoral neck fracture Interval history: 82-year-old female postop day two. Feels good. Having some trouble with verbal cues. Exam Const: General: cooperative, comfortable and no acute distress GI: Inspection: non-distended Extrem: Other: Right hip wound dry. Minimal swelling. No bruising. Neurovascular status unremarkable right extremity. Objective Data Vital Signs Vital Signs: Vital Signs - 24 hr 04/29/23 16:00 04/29/23 20:40 04/29/23 20:00 Temperature 98.3 F 97 F L Pulse Rate 96 96 96 Respiratory Rate 18 16 16 Blood Pressure 123/46 L 122/87 Pulse Oximetry 93 94 94 Oxygen Delivery Room Air 04/30/23 00:00 04/30/23 04:50 Temperature 96.1 F L 96.6 F L Pulse Rate 97 84 Respiratory Rate 16 20 Blood Pressure 150/61 H 148/67 H Pulse Oximetry 94 90 Oxygen Delivery Intake/Output Intake/Output: Intake & Output 04/27/23 04/28/23 04/29/23 04/30/23 23:59 23:59 23:59 23:59 Intake Total 200 / 200 750 / 750 1050 / 1050 290 / 290 Output Total 200 / 200 840 / 840 250 / 250 Balance 0 / 0 -90 / -90 800 / 800 290 / 290 Meds/Results Medications: Active Medications Generic Name Dose Route Start Last Admin Trade Name Freq PRN Reason Stop Dose Admin Acetaminophen 650 mg 04/28/23 10:22 Acetaminophen 325 Mg Tablet PO Q6H PRN Mild Pain (1-3) or Fever Hydrocodone Bitart/Acetaminophen 1 tab 04/28/23 10:22 04/30/23 11:31 Hydrocodone/Acetaminophen (*Crx) 5-325 Mg Tablet PO 1 tab Q3H PRN Administration Pain Rated 4-6 Aspirin 325 mg 04/28/23 17:00 04/30/23 08:27 Aspirin 325 Mg Enteric Tablet PO 325 mg BID JOSE Administration Famotidine 20 mg 04/28/23 21:00 04/30/23 08:27 Famotidine 20 Mg Tablet PO 20 mg Q12HR JOSE Administration Ferrous Sulfate 325 mg 04/28/23 13:10 04/30/23 08:27 Ferrous Sulfate [address] PO 325 mg DAILY@0800 [facility] Administration Gabapentin 300 mg 04/28/23 09:00 04/30/23 08:27 Gabapentin 300 Mg Capsule PO 300 mg DAILY [facility] Administration Gabapentin 600 mg 04/28/23 21:00 04/29/23 20:49 Gabapentin 300 Mg Capsule PO 600 mg QHS JOSE Administration Naloxone HCl 0.1 mg 04/28/23 10:22 Naloxone Hcl 0.4 Mg/Ml Vial IV PUSH Q2M PRN Opiate Reversal Ondansetron HCl 4 mg 04/27/23 12:31 Ondansetron Inj 4 Mg/2 Ml Vial IV PUSH Q4H PRN Nausea Polyethylene Glycol 17 gm 04/29/23 09:00 04/30/23 08:27 Polyethylene Glycol 3350 17 Gm Powd.Pack PO Not Given QAM [facility] Senna/Docusate Sodium 2 tab 04/28/23 17:00 04/30/23 08:27 Senna/Docusate Sodium Tablet PO Not Given BID [facility] Sertraline HCl 100 mg 04/28/23 09:00 04/30/23 08:27 Sertraline Hcl 50 Mg Tablet PO 100 mg DAILY JOSE Administration Radiology Results: ITS Impressions Hip/Pelvis X-Ray 04/27/23 10:05 IMPRESSION: 1. Subcapital fracture of right femoral neck. 2. Mild right hip osteoarthritis and advanced left hip osteoarthritis. Head CT 04/27/23 10:07 IMPRESSION: 1. 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 2. Extensive nonspecific cerebral white matter disease and disease of the deep dewitt nuclei, which likely represents chronic small vessel ischemic disease. Hip CT 04/27/23 13:54 IMPRESSION: 1. Subcapital fractur
[2023-04-30 14:00] VITALS: BP 138/62; PULSE 93; RESP 18; TEMP 36.9; O2SAT 94
[2023-04-30 18:41] LABS: Appearance Urine Clear (Clear); Bilirubin Urine Negative (Negative); Blood Urine Negative (Negative); Color Urine Yellow (Yellow); Glucose Urine UA Negative (Negative); Ketones Urine Negative (Negative); Leukocyte Esterase Ur Negative LEU/UL (NEGATIVE); Nitrate Urine Negative (Negative); Protein Urine Negative (Negative); Specific Grav Ur 1.018 (1.001-1.035); pH Urine 5.5 (5.0-9.0)
[2023-04-30 18:43] LABS: Add Urine Microscopic? NO
[2023-04-30 20:00] VITALS: PULSE 91; RESP 16; O2SAT 95
[2023-04-30 20:55] VITALS: BP 151/62; PULSE 91; RESP 16; TEMP 35.8; O2SAT 95
[2023-04-30] MEDS: GABAPENTIN 300 MG CAPSULE 600 MG PO (21:19)
[2023-05-01 06:15] VITALS: BP 150/82; PULSE 104; RESP 20; TEMP 36; O2SAT 97
[2023-05-01 06:48] LABS: Basophils Absolute Auto 0.1 K/mm3 (0.0-0.1); Eosinophils Absolute Auto 0.3 K/mm3 (0-0.3); Eosinophils Percent Auto 4.8 % (0-4.4); Hemoglobin 11.2 g/dL (12.0-15.0); Immature Granulocyte Absolute 0.05 K/mm3 (0.00-0.031); Lymphocytes Absolute Auto 1.21 K/mm3 (0.9-3.2); Lymphocytes Percent Auto 23.1 % (18.3-44.2); Mean Corpuscular HGB Conc 31.1 g/dl (32-36); Mean Corpuscular Hemoglobin 32.1 pg (26-34); Mean Corpuscular Volume 103.2 fl (80-100); Mean Platelet Volume 10.8 fl (7.4-10.4); Monocytes Absolute Auto 0.7 K/mm3 (0.1-0.6); Monocytes Percent Auto 12.8 % (2.6-8.5); Neutrophils Percent Auto 57.3 % (45.5-73.1); Platelet Count Result 237 k/mm3 (150-375); Red Blood Count 3.49 M/mm3 (4.2-5.4); Red Cell Distribution Width 12.4 % (11.5-14.5); White Blood Count 5.2 K/mm3 (4.5-10.0)
[2023-05-01 07:00] LABS: Alanine Aminotransferase 13 U/L (6-35); Albumin Level 3.3 g/dL (3.5-5.1); Alkaline Phosphatase 85 U/L (38-126); Anion Gap 8 mmol/L (8-16); Aspartate Amino Transferase 23 U/L (14-36); Bilirubin,Total 0.5 mg/dL (0.2-1.3); Blood Urea Nitrogen 20 mg/dL (7-17); Calcium 9.1 mg/dL (8.4-10.2); Carbon Dioxide 27 mmol/L (22-30); Chloride 106 mmol/L (98-107); Estimated CRCL calculation 41 ml/min; Estimated Glomerular Filt Rate > 60; Glucose 92 mg/dL (65-110); Potassium 3.8 mmol/L (3.4-5.0); Sodium 141 mmol/L (137-145)
[2023-05-01] MEDS: FERROUS SULFATE 325 MG TABLET DR PO (09:44)
[2023-05-01] MEDS: ASPIRIN 325 MG ENTERIC TABLET PO ×2 (09:44→16:40)
[2023-05-01] MEDS: GABAPENTIN 300 MG CAPSULE PO (09:44)
[2023-05-01] MEDS: SENNA/DOCUSATE SODIUM TABLET 2 TAB PO ×2 (09:44→16:41)
[2023-05-01] MEDS: FAMOTIDINE 20 MG TABLET PO ×2 (09:44→20:43)
[2023-05-01] MEDS: SERTRALINE HCL 50 MG TABLET 100 MG PO (09:44)
--- NOTE | 2023-05-01 11:40 | PM.PNORT ---
Progress Note: A&P Assessment and Plan (1) Subcapital fracture of right hip: Qualifiers: Encounter type: initial encounter Fracture type: closed Qualified Code(s): S72.011A - Unspecified intracapsular fracture of right femur, initial encounter for closed fracture Code(s): S72.011A - Unspecified intracapsular fracture of right femur, initial encounter for closed fracture Status: Acute Assessment and Plan: Overall doing well. Awaiting placement. Instructions in discharge orders. Subjective Subjective Date/Time Seen: 05/01/23 11:40 Post Op day: 3 Interval history: 82-year-old female postop day three right hip pinning. Awaiting placement. Comfortable. Exam Const: General: cooperative, comfortable and no acute distress Extrem: Other: Right hip wound dry. Neurovascular status unremarkable right lower extremity. Objective Data Vital Signs Vital Signs: Vital Signs - 24 hr 04/30/23 14:00 04/30/23 20:55 04/30/23 20:00 Temperature 98.4 F 96.4 F L Pulse Rate 93 91 91 Respiratory Rate 18 16 16 Blood Pressure 138/62 151/62 H Pulse Oximetry 94 95 95 Oxygen Delivery Room Air 05/01/23 06:15 Temperature 96.8 F L Pulse Rate 104 H Respiratory Rate 20 Blood Pressure 150/82 H Pulse Oximetry 97 Oxygen Delivery Intake/Output Intake/Output: Intake & Output 04/28/23 04/29/23 04/30/23 05/01/23 23:59 23:59 23:59 23:59 Intake Total 750 / 750 1050 / 1050 1270 / 1270 290 / 290 Output Total 840 / 840 250 / 250 100 / 100 Balance -90 / -90 800 / 800 1170 / 1170 290 / 290 Meds/Results Medications: Active Medications Generic Name Dose Route Start Last Admin Trade Name Freq PRN Reason Stop Dose Admin Acetaminophen 650 mg 04/28/23 10:22 Acetaminophen 325 Mg Tablet PO Q6H PRN Mild Pain (1-3) or Fever Hydrocodone Bitart/Acetaminophen 1 tab 04/28/23 10:22 04/30/23 21:33 Hydrocodone/Acetaminophen (*Crx) 5-325 Mg Tablet PO 1 tab Q3H PRN Administration Pain Rated 4-6 Aspirin 325 mg 04/28/23 17:00 05/01/23 09:44 Aspirin 325 Mg Enteric Tablet PO 325 mg BID JOSE Administration Famotidine 20 mg 04/28/23 21:00 05/01/23 09:44 Famotidine 20 Mg Tablet PO 20 mg Q12HR JOSE Administration Ferrous Sulfate 325 mg 04/28/23 13:10 05/01/23 09:44 Ferrous Sulfate [address] PO 325 mg DAILY@0800 JOSE Administration Gabapentin 300 mg 04/28/23 09:00 05/01/23 09:44 Gabapentin 300 Mg Capsule PO 300 mg DAILY JOSE Administration Gabapentin 600 mg 04/28/23 21:00 04/30/23 21:19 Gabapentin 300 Mg Capsule PO 600 mg QHS JOSE Administration Naloxone HCl 0.1 mg 04/28/23 10:22 Naloxone Hcl 0.4 Mg/Ml Vial IV PUSH Q2M PRN Opiate Reversal Ondansetron HCl 4 mg 04/27/23 12:31 Ondansetron Inj 4 Mg/2 Ml Vial IV PUSH Q4H PRN Nausea Polyethylene Glycol 17 gm 04/29/23 09:00 04/30/23 08:27 Polyethylene Glycol 3350 17 Gm Powd.Pack PO Not Given QAM JOSE Senna/Docusate Sodium 2 tab 04/28/23 17:00 05/01/23 09:44 Senna/Docusate Sodium Tablet PO 2 tab BID JOSE Administration Sertraline HCl 100 mg 04/28/23 09:00 05/01/23 09:44 Sertraline Hcl 50 Mg Tablet PO 100 mg DAILY JOSE Administration Radiology Results: ITS Impressions Hip/Pelvis X-Ray 04/27/23 10:05 IMPRESSION: 1. Subcapital fracture of right femoral neck. 2. Mild right hip osteoarthritis and advanced left hip osteoarthritis. Head CT 04/27/23 10:07 IMPRESSION: 1. 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 2. Extensive nonspecific cerebral white matter disease and disease of the deep dewitt nuclei, which likely represents chronic small vessel ischemic disease. Hip CT 04/27/23 13:54 IMPRESSION: 1. Subcapital fracture of right femoral neck. 2. Moderate right hip osteoarthritis. Intraoperative X-Ray 04/28/23 14:49 IMPRESSION: Fluoroscopic documentation of right hip pinning. Please re
[2023-05-01] MEDS: ACETAMINOPHEN 325 MG TABLET 650 MG PO (13:19)
[2023-05-01 14:00] VITALS: BP 166/78; PULSE 98; RESP 16; TEMP 36.5; O2SAT 97
--- NOTE | 2023-05-01 15:34 | PM.IMPN ---
Progress Note: A&P Assessment and Plan (1) Subcapital fracture of right hip: Qualifiers: Encounter type: initial encounter Fracture type: closed Qualified Code(s): S72.011A - Unspecified intracapsular fracture of right femur, initial encounter for closed fracture Code(s): S72.011A - Unspecified intracapsular fracture of right femur, initial encounter for closed fracture Status: Acute Assessment and Plan: Pod: 3 -continue p.r.n. pain control -awaiting JESIKA rehabilitation placement -continue PT as tolerated (2) Anemia: Code(s): D64.9 - Anemia, unspecified Status: Acute Assessment and Plan: -continue p.o. iron replacement and B12/folate wnl -continue to monitor H&H daily (3) Ground-level fall: Code(s): W18.30XA - Fall on same level, unspecified, initial encounter Status: Acute Subjective Date/time seen: 05/01/23 1330 Interval history: This is an 82-year-old female who presented to the emergency department via EMS from home for evaluation of right hip pain after fall. The patient provides the following history. She seems to be a bit confused regarding time frame but provides the following history. Last night or the night before she walked down to the basement to get something out of a closet and when she opened the door she tripped on something ?because it was dark in there.? She fell onto her right side and had immediate pain in the right hip. She was able to crawl up stairs where she took? 2 tramadol which she was recently prescribed for pain in her left hip which in fact is scheduled to be replaced in the coming weeks at [facility]. She had never taken 2 tramadol before and she tells me that she had some hallucinations after taking the medication. Today she apparently called her granddaughter who brought her in for evaluation due to ongoing pain and difficulties bearing weight. She denied head trauma and loss of consciousness in the fall and reports no other injuries. Her vital signs were stable on arrival to the emergency department. Imaging showed a subcapital fracture of the right femoral neck and she is being admitted in this setting for pain control and orthopedic consultation. Date/time seen: 04/29/23? 14:12 Interval history: ? 82-year-old female who is postop day one status post pinning in-situ right subcapital femoral neck fracture.? S/p hip repair to discharge to SNF tomorrow 04/30/2023:pt seen this a.m by the bedside she denies any overnight events.? She is pod: 2,? physical therapy is by the bedside patient is participating without any complaints of pain. 05/01/2023: Pt seen today, she is up in the chair eating her lunch, in no acute distress. She reports no overnight events, she states this morning she had pain, and requested medication that pt states made her drowsy. She states she may try pain medication that will not make her sleepy. She denies any chest pain, n/v, fever or chills. She has no c/o at this time. Her son by the bedside is very concerned that his mother is able to go to [facility], he lives out of town and is concerned about placement. Review of Systems Review of Systems: Twelve systems were reviewed. No recent cold or flu symptoms. She denies fever, chills, and sweats. No chest or pleuritic pain. She denies exertional chest pain. No orthopnea, paroxysmal nocturnal dyspnea, or lower extremity edema. She denies history of venous thromboembolism. Except as documented, all other systems were reviewed and are negative. All systems reviewed & are unremarkable except as noted in HPI and below Exam Narrative: General: Well-developed female in the semi-Rhoades position no acute distress. Weight: 68.9 kg. BMI: 26.1. HEENT: Normocephalic, atraumatic. PERRL, EOMI. Sclera anicteric. Oral mucosa moist. Neck: Supple. Respiratory: Lungs are clear to auscultation bilaterally. Cardiovascular: Regular rate and rhythm with S1-S2. No significant mu
[2023-05-01] MEDS: HYDROcodone/acetaminophen (*CRX) 5-325 MG TABLET 1 TAB PO ×2 (16:40→20:50)
[2023-05-01 20:20] VITALS: BP 136/65; PULSE 86; RESP 20; TEMP 36.1; O2SAT 98
[2023-05-01] MEDS: GABAPENTIN 300 MG CAPSULE 600 MG PO (20:43)
[2023-05-02 05:35] VITALS: BP 152/78; PULSE 85; RESP 18; TEMP 35.9; O2SAT 96
[2023-05-02] MEDS: HYDROcodone/acetaminophen (*CRX) 5-325 MG TABLET 1 TAB PO ×4 (06:13→20:19)
[2023-05-02 06:39] LABS: Basophils Absolute Auto 0.1 K/mm3 (0.0-0.1); Eosinophils Absolute Auto 0.3 K/mm3 (0-0.3); Eosinophils Percent Auto 4.7 % (0-4.4); Hematocrit 34.8 % (37.0-47.0); Hemoglobin 11.1 g/dL (12.0-15.0); Immature Granulocyte Absolute 0.07 K/mm3 (0.00-0.031); Immature Granulocyte Percent A 1.2 % (0-0.5); Lymphocytes Absolute Auto 1.54 K/mm3 (0.9-3.2); Lymphocytes Percent Auto 26.6 % (18.3-44.2); Mean Corpuscular HGB Conc 31.9 g/dl (32-36); Mean Corpuscular Hemoglobin 32.4 pg (26-34); Mean Corpuscular Volume 101.5 fl (80-100); Mean Platelet Volume 10.4 fl (7.4-10.4); Monocytes Absolute Auto 0.6 K/mm3 (0.1-0.6); Monocytes Percent Auto 10.9 % (2.6-8.5); Neutrophils Absolute Auto 3.2 K/mm3 (1.3-6.7); Neutrophils Percent Auto 55.6 % (45.5-73.1); Platelet Count Result 249 k/mm3 (150-375); Red Blood Count 3.43 M/mm3 (4.2-5.4); Red Cell Distribution Width 12.5 % (11.5-14.5); White Blood Count 5.8 K/mm3 (4.5-10.0)
[2023-05-02 06:44] LABS: Alanine Aminotransferase 16 U/L (6-35); Albumin Level 3.5 g/dL (3.5-5.1); Alkaline Phosphatase 95 U/L (38-126); Anion Gap 7 mmol/L (8-16); Aspartate Amino Transferase 25 U/L (14-36); Bilirubin,Total 0.6 mg/dL (0.2-1.3); Blood Urea Nitrogen 19 mg/dL (7-17); Calcium 9.2 mg/dL (8.4-10.2); Carbon Dioxide 27 mmol/L (22-30); Chloride 106 mmol/L (98-107); Estimated CRCL calculation 37 ml/min; Estimated Glomerular Filt Rate 60; Glucose 98 mg/dL (65-110); Potassium 3.6 mmol/L (3.4-5.0); Sodium 140 mmol/L (137-145)
[2023-05-02] MEDS: SERTRALINE HCL 50 MG TABLET 100 MG PO (09:07)
[2023-05-02] MEDS: FERROUS SULFATE 325 MG TABLET DR PO (09:07)
[2023-05-02] MEDS: FAMOTIDINE 20 MG TABLET PO ×2 (09:07→20:19)
[2023-05-02] MEDS: SENNA/DOCUSATE SODIUM TABLET 2 TAB PO ×2 (09:08→17:44)
[2023-05-02] MEDS: GABAPENTIN 300 MG CAPSULE PO (09:08)
[2023-05-02] MEDS: ASPIRIN 325 MG ENTERIC TABLET PO ×2 (09:08→17:44)
[2023-05-02 14:00] VITALS: BP 132/56; PULSE 85; RESP 22; TEMP 36.7; O2SAT 94
--- NOTE | 2023-05-02 19:35 | PM.IMPN ---
Progress Note: A&P Assessment and Plan (1) Subcapital fracture of right hip: Qualifiers: Encounter type: initial encounter Fracture type: closed Qualified Code(s): S72.011A - Unspecified intracapsular fracture of right femur, initial encounter for closed fracture Code(s): S72.011A - Unspecified intracapsular fracture of right femur, initial encounter for closed fracture Status: Acute (2) Anemia: Code(s): D64.9 - Anemia, unspecified Status: Acute (3) Ground-level fall: Code(s): W18.30XA - Fall on same level, unspecified, initial encounter Status: Acute Plan (1) Subcapital fracture of right hip: ?Qualifiers: ?Encounter type:?initial encounter??Fracture type:?closed? Qualified Code(s):?S72.011A - Unspecified intracapsular fracture of right femur, initial encounter for closed fracture ?Code(s): S72.011A - Unspecified intracapsular fracture of right femur, initial encounter for closed fracture ?Status:?Acute ?Assessment and Plan: Pod: 4 -continue p.r.n. pain control initial request for JESIKA has been denied, appeal is in process -continue PT as tolerated (2) Anemia: ? -continue p.o. iron replacement and B12/folate wnl -continue to monitor H&H daily (3) Ground-level fall: ?- continue fall precautions Diet: regular VTE: SCDs Subjective Date/time seen: 05/02/23 19:35 Interval history: This is an 82-year-old female who presented to the emergency department via EMS from home for evaluation of right hip pain after fall. The patient provides the following history. She seems to be a bit confused regarding time frame but provides the following history. Last night or the night before she walked down to the basement to get something out of a closet and when she opened the door she tripped on something ?because it was dark in there.? She fell onto her right side and had immediate pain in the right hip. She was able to crawl up stairs where she took? 2 tramadol which she was recently prescribed for pain in her left hip which in fact is scheduled to be replaced in the coming weeks at [facility]. She had never taken 2 tramadol before and she tells me that she had some hallucinations after taking the medication. Today she apparently called her granddaughter who brought her in for evaluation due to ongoing pain and difficulties bearing weight. She denied head trauma and loss of consciousness in the fall and reports no other injuries. Her vital signs were stable on arrival to the emergency department. Imaging showed a subcapital fracture of the right femoral neck and she is being admitted in this setting for pain control and orthopedic consultation. Date/time seen: 04/29/23? 14:12 Interval history: ? 82-year-old female who is postop day one status post pinning in-situ right subcapital femoral neck fracture.? S/p hip repair to discharge to SNF tomorrow 04/30/2023:pt seen this a.m by the bedside she denies any overnight events.? She is pod: 2,? physical therapy is by the bedside patient is participating without any complaints of pain. 05/01/2023: POD: 3??Pt seen today, she is up in the chair eating her lunch, in no acute distress. She reports no overnight events, she states this morning she had pain, and requested medication that pt states made her drowsy. She states she may try pain medication that will not make her sleepy. She denies any chest pain, n/v, fever or chills. She has no c/o at this time. Her son by the bedside is very concerned that his mother is able to go to [facility], he lives out of town and is concerned about placement. 05/02/2023: POD: [address] [facility],pt seen this a.m., she is awake lying in bed with no c/o at this time. She denies any overnight events. denies any chest pain, n/v, fever or chills at this time. Review of Systems Review of Systems: Twelve systems were reviewed. No recent cold or flu symptoms. She denies fever, chills, an
[2023-05-02] MEDS: GABAPENTIN 300 MG CAPSULE 600 MG PO (20:19)
[2023-05-02 21:10] VITALS: BP 147/56; PULSE 81; RESP 16; TEMP 36.2; O2SAT 97
[2023-05-03] MEDS: HYDROcodone/acetaminophen (*CRX) 5-325 MG TABLET 1 TAB PO ×4 (00:08→20:04)
[2023-05-03 06:00] VITALS: BP 149/59; PULSE 87; RESP 18; TEMP 35.9; O2SAT 96
[2023-05-03 06:50] LABS: Basophils Percent Auto 0.7 % (0.2-1.2); Eosinophils Absolute Auto 0.3 K/mm3 (0-0.3); Eosinophils Percent Auto 4.7 % (0-4.4); Hematocrit 35.1 % (37.0-47.0); Hemoglobin 10.8 g/dL (12.0-15.0); Immature Granulocyte Absolute 0.11 K/mm3 (0.00-0.031); Immature Granulocyte Percent A 1.8 % (0-0.5); Lymphocytes Absolute Auto 1.48 K/mm3 (0.9-3.2); Lymphocytes Percent Auto 24.9 % (18.3-44.2); Mean Corpuscular HGB Conc 30.8 g/dl (32-36); Mean Corpuscular Hemoglobin 32.1 pg (26-34); Mean Corpuscular Volume 104.5 fl (80-100); Mean Platelet Volume 10.4 fl (7.4-10.4); Monocytes Absolute Auto 0.6 K/mm3 (0.1-0.6); Monocytes Percent Auto 10.4 % (2.6-8.5); Neutrophils Absolute Auto 3.4 K/mm3 (1.3-6.7); Neutrophils Percent Auto 57.5 % (45.5-73.1); Platelet Count Result 244 k/mm3 (150-375); Red Blood Count 3.36 M/mm3 (4.2-5.4); Red Cell Distribution Width 12.5 % (11.5-14.5)
[2023-05-03 07:05] LABS: Alanine Aminotransferase 22 U/L (6-35); Albumin Level 3.4 g/dL (3.5-5.1); Alkaline Phosphatase 97 U/L (38-126); Anion Gap 8 mmol/L (8-16); Aspartate Amino Transferase 30 U/L (14-36); Bilirubin,Total 0.4 mg/dL (0.2-1.3); Blood Urea Nitrogen 17 mg/dL (7-17); Calcium 9.1 mg/dL (8.4-10.2); Carbon Dioxide 28 mmol/L (22-30); Chloride 105 mmol/L (98-107); Estimated CRCL calculation 37 ml/min; Estimated Glomerular Filt Rate 60; Glucose 94 mg/dL (65-110); Potassium 3.8 mmol/L (3.4-5.0); Sodium 141 mmol/L (137-145)
[2023-05-03] MEDS: GABAPENTIN 300 MG CAPSULE PO (08:11)
[2023-05-03] MEDS: ASPIRIN 325 MG ENTERIC TABLET PO ×2 (08:11→16:58)
[2023-05-03] MEDS: SENNA/DOCUSATE SODIUM TABLET 2 TAB PO ×2 (08:11→16:59)
[2023-05-03] MEDS: SERTRALINE HCL 50 MG TABLET 100 MG PO (08:11)
[2023-05-03] MEDS: FERROUS SULFATE 325 MG TABLET DR PO (08:11)
[2023-05-03] MEDS: polyethylene glycoL 3350 17 GM POWD.PACK PO (08:11)
[2023-05-03] MEDS: FAMOTIDINE 20 MG TABLET PO ×2 (08:11→20:01)
[2023-05-03 14:00] VITALS: BP 144/60; PULSE 81; RESP 16; TEMP 36.2; O2SAT 96
--- NOTE | 2023-05-03 18:50 | PM.IMPN ---
Progress Note: A&P Assessment and Plan (1) Subcapital fracture of right hip: Qualifiers: Encounter type: initial encounter Fracture type: closed Qualified Code(s): S72.011A - Unspecified intracapsular fracture of right femur, initial encounter for closed fracture Code(s): S72.011A - Unspecified intracapsular fracture of right femur, initial encounter for closed fracture Status: Acute (2) Anemia: Code(s): D64.9 - Anemia, unspecified Status: Acute (3) Ground-level fall: Code(s): W18.30XA - Fall on same level, unspecified, initial encounter Status: Acute Plan (1) Subcapital fracture of right hip: ?Qualifiers: ?Encounter type:?initial encounter??Fracture type:?closed? Qualified Code(s):?S72.011A - Unspecified intracapsular fracture of right femur, initial encounter for closed fracture ?Code(s): S72.011A - Unspecified intracapsular fracture of right femur, initial encounter for closed fracture ?Status:?Acute ?Assessment and Plan: Pod: 4 -continue p.r.n. pain control initial request for JESIKA has been denied, appeal is in process -continue PT as tolerated (2) Anemia: ? -continue p.o. iron replacement and B12/folate wnl -continue to monitor H&H daily (3) Ground-level fall: ?- continue fall precautions Diet: regular VTE: SCDs Subjective Date/time seen: 05/03/23 18:50 Interval history: This is an 82-year-old female who presented to the emergency department via EMS from home for evaluation of right hip pain after fall. The patient provides the following history. She seems to be a bit confused regarding time frame but provides the following history. Last night or the night before she walked down to the basement to get something out of a closet and when she opened the door she tripped on something ?because it was dark in there.? She fell onto her right side and had immediate pain in the right hip. She was able to crawl up stairs where she took? 2 tramadol which she was recently prescribed for pain in her left hip which in fact is scheduled to be replaced in the coming weeks at [facility]. She had never taken 2 tramadol before and she tells me that she had some hallucinations after taking the medication. Today she apparently called her granddaughter who brought her in for evaluation due to ongoing pain and difficulties bearing weight. She denied head trauma and loss of consciousness in the fall and reports no other injuries. Her vital signs were stable on arrival to the emergency department. Imaging showed a subcapital fracture of the right femoral neck and she is being admitted in this setting for pain control and orthopedic consultation. Date/time seen: 04/29/23? 14:12 Interval history: ? 82-year-old female who is postop day one status post pinning in-situ right subcapital femoral neck fracture.? S/p hip repair to discharge to SNF tomorrow 04/30/2023:pt seen this a.m by the bedside she denies any overnight events.? She is pod: 2,? physical therapy is by the bedside patient is participating without any complaints of pain. 05/01/2023:?POD: 3??Pt seen today, she is up in the chair eating her lunch, in no acute distress. She reports no overnight events, she states this morning she had pain, and requested medication that pt states made her drowsy. She states she may try pain medication that will not make her sleepy. She denies any chest pain, n/v, fever or chills. She has no c/o at this time. Her son by the bedside is very concerned that his mother is able to go to [facility], he lives out of town and is concerned about placement. 05/02/2023:?POD: 4 waiting for admission to [facility],pt seen this a.m., she is awake lying in bed with no c/o at this time. She denies any overnight events. denies any chest pain, n/v, fever or chills at this time. 05/03/2023: Pod:5 patient seen today, she is up to the bedside commode with assistance from family member, she denies any complaints at
[2023-05-03 20:00] VITALS: PULSE 81; RESP 16; O2SAT 96
[2023-05-03] MEDS: GABAPENTIN 300 MG CAPSULE 600 MG PO (20:01)
[2023-05-03 20:45] VITALS: BP 145/74; PULSE 85; RESP 16; TEMP 35.7; O2SAT 98
[2023-05-04 05:45] VITALS: BP 175/72; PULSE 90; RESP 16; TEMP 36.3; O2SAT 97
[2023-05-04 06:29] LABS: Basophils Absolute Auto 0.1 K/mm3 (0.0-0.1); Basophils Percent Auto 0.8 % (0.2-1.2); Eosinophils Absolute Auto 0.2 K/mm3 (0-0.3); Eosinophils Percent Auto 3.6 % (0-4.4); Hematocrit 35.7 % (37.0-47.0); Hemoglobin 11.3 g/dL (12.0-15.0); Immature Granulocyte Percent A 1.6 % (0-0.5); Lymphocytes Percent Auto 25.2 % (18.3-44.2); Mean Corpuscular HGB Conc 31.7 g/dl (32-36); Mean Corpuscular Hemoglobin 32.3 pg (26-34); Mean Platelet Volume 10.5 fl (7.4-10.4); Monocytes Absolute Auto 0.5 K/mm3 (0.1-0.6); Monocytes Percent Auto 8.3 % (2.6-8.5); Neutrophils Absolute Auto 3.9 K/mm3 (1.3-6.7); Neutrophils Percent Auto 60.5 % (45.5-73.1); Platelet Count Result 269 k/mm3 (150-375); Red Cell Distribution Width 12.5 % (11.5-14.5); White Blood Count 6.4 K/mm3 (4.5-10.0)
[2023-05-04 06:35] VITALS: BP 170/67; PULSE 89; RESP 20; TEMP 36.4; O2SAT 96
[2023-05-04 06:40] LABS: Alanine Aminotransferase 24 U/L (6-35); Albumin Level 3.6 g/dL (3.5-5.1); Alkaline Phosphatase 105 U/L (38-126); Anion Gap 8 mmol/L (8-16); Aspartate Amino Transferase 29 U/L (14-36); Bilirubin,Total 0.4 mg/dL (0.2-1.3); Blood Urea Nitrogen 19 mg/dL (7-17); Calcium 9.2 mg/dL (8.4-10.2); Carbon Dioxide 29 mmol/L (22-30); Chloride 105 mmol/L (98-107); Estimated CRCL calculation 37 ml/min; Estimated Glomerular Filt Rate 60; Glucose 91 mg/dL (65-110); Sodium 142 mmol/L (137-145)
--- NOTE | 2023-05-04 09:05 | PCOTNOTE ---
Attempted to see pt for Occupational Therapy treatment. Pt is visibly upset and emotional stating frustration with not being able to get out and having increase assistance for all tasks due to fall risk/safety concerns. Pt's bp is also elevated. RN is aware of pt's situation. Will attempt at a later time.
[2023-05-04] MEDS: ACETAMINOPHEN 325 MG TABLET 650 MG PO (09:07)
[2023-05-04] MEDS: SERTRALINE HCL 50 MG TABLET 100 MG PO (09:07)
[2023-05-04] MEDS: GABAPENTIN 300 MG CAPSULE PO (09:08)
[2023-05-04] MEDS: FERROUS SULFATE 325 MG TABLET DR PO (09:08)
[2023-05-04] MEDS: FAMOTIDINE 20 MG TABLET PO ×2 (09:08→19:55)
[2023-05-04] MEDS: ASPIRIN 325 MG ENTERIC TABLET PO ×2 (09:08→16:30)
[2023-05-04] MEDS: SENNA/DOCUSATE SODIUM TABLET 2 TAB PO ×2 (09:08→16:30)
[2023-05-04] MEDS: HYDROcodone/acetaminophen (*CRX) 5-325 MG TABLET 1 TAB PO ×2 (10:58→21:13)
[2023-05-04] MEDS: ENOXAPARIN 40 MG/0.4 ML SYRINGE SUB-Q (13:34)
[2023-05-04 14:00] VITALS: BP 134/73; PULSE 87; RESP 10; TEMP 36.5; O2SAT 100
--- NOTE | 2023-05-04 14:53 | PM.IMPN ---
Progress Note: A&P Assessment and Plan (1) Subcapital fracture of right hip: Qualifiers: Encounter type: initial encounter Fracture type: closed Qualified Code(s): S72.011A - Unspecified intracapsular fracture of right femur, initial encounter for closed fracture Code(s): S72.011A - Unspecified intracapsular fracture of right femur, initial encounter for closed fracture Status: Acute (2) Anemia: Code(s): D64.9 - Anemia, unspecified Status: Acute (3) Ground-level fall: Code(s): W18.30XA - Fall on same level, unspecified, initial encounter Status: Acute (4) Weakness: Code(s): R53.1 - Weakness Status: Acute Plan Weakness: PT concerned patient and steady with ongoing weakness -continue fall precautions -check CXR, patient with mild shortness of breath and anxiety when trying to ambulate ordering a chest x-ray to make sure no evidence of PN s/p: Operative procedure (1) Subcapital fracture of right hip: ?Qualifiers: ?Encounter type:?initial encounter??Fracture type:?closed? Qualified Code(s):?S72.011A - Unspecified intracapsular fracture of right femur, initial encounter for closed fracture ?Code(s): S72.011A - Unspecified intracapsular fracture of right femur, initial encounter for closed fracture ?Status:?Acute ?Assessment and Plan: Pod: 5 -continue p.r.n. pain control initial request for JESIKA has been denied, appeal is in process -continue PT as tolerated (2) Anemia: ? -continue p.o. iron replacement and B12/folate wnl -continue to monitor H&H daily (3) Ground-level fall: ?- continue fall precautions Diet: regular VTE: pt does not tolerate SCDs switched to enoxaparin subQ Subjective Date/time seen: 05/04/23 14:53 Interval history: Interval history: ? 82-year-old female who is postop day one status post pinning in-situ right subcapital femoral neck fracture.? S/p hip repair to discharge to SNF tomorrow 04/30/2023:pt seen this a.m by the bedside she denies any overnight events.? She is pod: 2,? physical therapy is by the bedside patient is participating without any complaints of pain. 05/01/2023:?POD: 3??Pt seen today, she is up in the chair eating her lunch, in no acute distress. She reports no overnight events, she states this morning she had pain, and requested medication that pt states made her drowsy. She states she may try pain medication that will not make her sleepy. She denies any chest pain, n/v, fever or chills. She has no c/o at this time. Her son by the bedside is very concerned that his mother is able to go to [facility], he lives out of town and is concerned about placement. 05/02/2023:?POD: 4 waiting for admission to [facility],pt seen this a.m., she is awake lying in bed with no c/o at this time. She denies any overnight events. denies any chest pain, n/v, fever or chills at this time. 05/03/2023:??Pod:5? patient seen today, she is up to the bedside commode with assistance from family member, she denies any complaints at this time.? Patient is still awaiting placement for acute/subacute rehabilitation s/p:? Right hip repair. 05/04/2023: Patient seen today she is up sitting in the chair family is by the bedside, she reports a.m. events with anxiety, she states she requested Zoloft, for anxiety, and finally decided to take a pain pill. Patient states she is very concerned and anxious due to pending placement for acute rehabilitation. She admits to ongoing weakness and unsteady gait with transferring. Exam Narrative: General: Well-developed female up to bedside commode. Weight: 68.9 kg. BMI: 26.1. HEENT: Normocephalic, atraumatic. PERRL, EOMI. Sclera anicteric. Oral mucosa moist. Neck: Supple. Respiratory: Lungs are clear to auscultation bilaterally. Cardiovascular: Regular rate and rhythm with S1-S2. No significant murmur. Gastrointestinal: Abdomen is soft, nontender, and nondistended with positive bowel sounds. Skin: Warm
[2023-05-04] MEDS: GABAPENTIN 300 MG CAPSULE 600 MG PO (19:55)
[2023-05-04 20:35] VITALS: BP 161/75; PULSE 81; RESP 16; TEMP 36.2; O2SAT 99
[2023-05-05 05:21] VITALS: BP 164/65; PULSE 87; RESP 16; TEMP 35.6; O2SAT 98
[2023-05-05 06:36] LABS: Basophils Percent Auto 0.6 % (0.2-1.2); Eosinophils Absolute Auto 0.2 K/mm3 (0-0.3); Eosinophils Percent Auto 3.3 % (0-4.4); Hematocrit 34.6 % (37.0-47.0); Hemoglobin 10.6 g/dL (12.0-15.0); Immature Granulocyte Absolute 0.09 K/mm3 (0.00-0.031); Immature Granulocyte Percent A 1.4 % (0-0.5); Lymphocytes Absolute Auto 1.21 K/mm3 (0.9-3.2); Lymphocytes Percent Auto 18.4 % (18.3-44.2); Mean Corpuscular HGB Conc 30.6 g/dl (32-36); Mean Corpuscular Hemoglobin 32.3 pg (26-34); Mean Corpuscular Volume 105.5 fl (80-100); Mean Platelet Volume 10.7 fl (7.4-10.4); Monocytes Absolute Auto 0.6 K/mm3 (0.1-0.6); Monocytes Percent Auto 8.4 % (2.6-8.5); Neutrophils Absolute Auto 4.5 K/mm3 (1.3-6.7); Neutrophils Percent Auto 67.9 % (45.5-73.1); Platelet Count Result 248 k/mm3 (150-375); Red Blood Count 3.28 M/mm3 (4.2-5.4); Red Cell Distribution Width 12.5 % (11.5-14.5); White Blood Count 6.6 K/mm3 (4.5-10.0)
[2023-05-05 06:41] LABS: Alanine Aminotransferase 23 U/L (6-35); Albumin Level 3.4 g/dL (3.5-5.1); Alkaline Phosphatase 95 U/L (38-126); Anion Gap 7 mmol/L (8-16); Aspartate Amino Transferase 26 U/L (14-36); Bilirubin,Total 0.4 mg/dL (0.2-1.3); Blood Urea Nitrogen 14 mg/dL (7-17); Calcium 9.1 mg/dL (8.4-10.2); Carbon Dioxide 30 mmol/L (22-30); Chloride 103 mmol/L (98-107); Estimated CRCL calculation 37 ml/min; Estimated Glomerular Filt Rate 60; Glucose 108 mg/dL (65-110); Potassium 3.3 mmol/L (3.4-5.0); Sodium 140 mmol/L (137-145)
--- NOTE | 2023-05-05 08:36 | PM.PNORT ---
Progress Note: A&P Assessment and Plan (1) Subcapital fracture of right hip: Qualifiers: Encounter type: initial encounter Fracture type: closed Qualified Code(s): S72.011A - Unspecified intracapsular fracture of right femur, initial encounter for closed fracture Code(s): S72.011A - Unspecified intracapsular fracture of right femur, initial encounter for closed fracture Status: Acute Plan 82-year-old female postop day eight pinning right hip. Doing well from orthopedic standpoint. Sitting up in a chair comfortably today. Awaiting placement. [place] will need to come out in one week. No change in weight-bearing status for another seven weeks. Subjective Subjective Date/Time Seen: 05/05/23 08:36 Post Op day: POD 8 Principal diagnosis: right subcapital femoral neck fracture Interval history: 82-year-old female postop day eight pinning right subcapital femoral neck fracture. Doing well. Tolerating therapy. Awaiting placement. Exam Const: General: cooperative, comfortable and no acute distress Resp: Effort & Inspection: normal respiratory effort Cardio: Rate: regular rate Extrem: Other: Right hip wound dry. Neurovascular status right lower extremity intact. Calves negative. Minimal swelling right hip area. No pain with manipulation of the right hip. Objective Data Vital Signs Vital Signs: Vital Signs - 24 hr 05/04/23 09:10 05/04/23 14:00 05/04/23 20:00 Temperature 97.7 F Pulse Rate 87 Respiratory Rate 10 L Blood Pressure 134/73 Pulse Oximetry 100 Oxygen Delivery Room Air Room Air 05/04/23 20:35 05/05/23 05:21 Temperature 97.1 F L 96.1 F L Pulse Rate 81 87 Respiratory Rate 16 16 Blood Pressure 161/75 H 164/65 H Pulse Oximetry 99 98 Oxygen Delivery Intake/Output Intake/Output: Intake & Output 05/02/23 05/03/23 05/04/23 05/05/23 23:59 23:59 23:59 23:59 Intake Total 1750 / 1750 830 / 830 1000 / 1000 416 / 416 Output Total 750 / 750 Balance 1000 / 1000 830 / 830 1000 / 1000 416 / 416 Meds/Results Medications: Active Medications Generic Name Dose Route Start Last Admin Trade Name Freq PRN Reason Stop Dose Admin Acetaminophen 650 mg 04/28/23 10:22 05/04/23 09:07 Acetaminophen 325 Mg Tablet PO 650 mg Q6H PRN Administration Mild Pain (1-3) or Fever Hydrocodone Bitart/Acetaminophen 1 tab 04/28/23 10:22 05/04/23 21:13 Hydrocodone/Acetaminophen (*Crx) 5-325 Mg Tablet PO 1 tab Q3H PRN Administration Pain Rated 4-6 Aspirin 325 mg 04/28/23 17:00 05/04/23 16:30 Aspirin 325 Mg Enteric Tablet PO 325 mg BID JOSE Administration Famotidine 20 mg 04/28/23 21:00 05/04/23 19:55 Famotidine 20 Mg Tablet PO 20 mg Q12HR JOSE Administration Ferrous Sulfate 325 mg 04/28/23 13:10 05/04/23 09:08 Ferrous Sulfate [address] PO 325 mg DAILY@0800 [facility] Administration Gabapentin 300 mg 04/28/23 09:00 05/04/23 09:08 Gabapentin 300 Mg Capsule PO 300 mg DAILY JOSE Administration Gabapentin 600 mg 04/28/23 21:00 05/04/23 19:55 Gabapentin 300 Mg Capsule PO 600 mg QHS JOSE Administration Naloxone HCl 0.1 mg 04/28/23 10:22 Naloxone Hcl 0.4 Mg/Ml Vial IV PUSH Q2M PRN Opiate Reversal Ondansetron HCl 4 mg 04/27/23 12:31 Ondansetron Inj 4 Mg/2 Ml Vial IV PUSH Q4H PRN Nausea Polyethylene Glycol 17 gm 04/29/23 09:00 05/04/23 09:10 Polyethylene Glycol 3350 17 Gm Powd.Pack PO Not Given QAM JOSE Senna/Docusate Sodium 2 tab 04/28/23 17:00 05/04/23 16:30 Senna/Docusate Sodium Tablet PO 2 tab BID JOSE Administration Sertraline HCl 100 mg 04/28/23 09:00 05/04/23 09:07 Sertraline Hcl 50 Mg Tablet PO 100 mg DAILY JOSE Administration Radiology Results: ITS Impressions Hip/Pelvis X-Ray 04/27/23 10:05 IMPRESSION: 1. Subcapital fracture of right femoral neck. 2. Mild right hip osteoarthritis and advanced left hi
[2023-05-05] MEDS: SERTRALINE HCL 50 MG TABLET 100 MG PO (08:46)
[2023-05-05] MEDS: FAMOTIDINE 20 MG TABLET PO (08:46)
[2023-05-05] MEDS: FERROUS SULFATE 325 MG TABLET DR PO (08:46)
[2023-05-05] MEDS: ASPIRIN 325 MG ENTERIC TABLET PO ×2 (08:46→16:50)
[2023-05-05] MEDS: GABAPENTIN 300 MG CAPSULE PO (08:47)
[2023-05-05] MEDS: HYDROcodone/acetaminophen (*CRX) 5-325 MG TABLET 1 TAB PO ×2 (12:54→16:52)
[2023-05-05 14:00] VITALS: BP 152/70; PULSE 102; RESP 18; TEMP 36.4; O2SAT 95
--- NOTE | 2023-05-05 15:59 | PM.DS ---
DS: Admitting Diagnosis Discharge Date 05/05/2023 Admitting Diagnosis Acute hypokalemia DS: Discharge Diagnosis Discharge Diagnosis (1) Subcapital fracture of right hip: Qualifiers: Encounter type: initial encounter Fracture type: closed Qualified Code(s): S72.011A - Unspecified intracapsular fracture of right femur, initial encounter for closed fracture Code(s): S72.011A - Unspecified intracapsular fracture of right femur, initial encounter for closed fracture Status: Acute (2) Anemia: Code(s): D64.9 - Anemia, unspecified Status: Acute (3) Ground-level fall: Code(s): W18.30XA - Fall on same level, unspecified, initial encounter Status: Acute (4) Weakness: Code(s): R53.1 - Weakness Status: Acute DS: Summary Hospital Course Reason for hospitalization: This is an 82-year-old female who presented to the emergency department via EMS from home for evaluation of right hip pain after fall Hospital Course: ?The patient provides the following history. She seems to be a bit confused regarding time frame but provides the following history. Last night or the night before she walked down to the basement to get something out of a closet and when she opened the door she tripped on something ?because it was dark in there.? She fell onto her right side and had immediate pain in the right hip. She was able to crawl up stairs where she took? 2 tramadol which she was recently prescribed for pain in her left hip which in fact is scheduled to be replaced in the coming weeks at [facility]. She had never taken 2 tramadol before and she tells me that she had some hallucinations after taking the medication. Today she apparently called her granddaughter who brought her in for evaluation due to ongoing pain and difficulties bearing weight. She denied head trauma and loss of consciousness in the fall and reports no other injuries. Her vital signs were stable on arrival to the emergency department. Imaging showed a subcapital fracture of the right femoral neck and she is being admitted in this setting for pain control and orthopedic consultation. ?82-year-old female who is postop day one status post pinning in-situ right subcapital femoral neck fracture.? S/p hip repair to discharge to SNF tomorrow 04/30/2023:pt seen this a.m by the bedside she denies any overnight events.? She is pod: 2,? physical therapy is by the bedside patient is participating without any complaints of pain. 05/01/2023:?POD: 3??Pt seen today, she is up in the chair eating her lunch, in no acute distress. She reports no overnight events, she states this morning she had pain, and requested medication that pt states made her drowsy. She states she may try pain medication that will not make her sleepy. She denies any chest pain, n/v, fever or chills. She has no c/o at this time. Her son by the bedside is very concerned that his mother is able to go to [facility], he lives out of town and is concerned about placement. 05/02/2023:?POD: 4 waiting for admission to [facility],pt seen this a.m., she is awake lying in bed with no c/o at this time. She denies any overnight events. denies any chest pain, n/v, fever or chills at this time. 05/03/2023:??Pod:5? patient seen today, she is up to the bedside commode with assistance from family member, she denies any complaints at this time.? Patient is still awaiting placement for acute/subacute rehabilitation s/p:? Right hip repair. 05/04/2023:??Patient seen today she is up sitting in the chair family is by the bedside, she reports a.m. events with anxiety, she states she requested Zoloft, for anxiety, and finally decided to take a pain pill.? Patient states she is very concerned and anxious due to pending placement for acute rehabilitation. She admits to ongoing weakness and unsteady gait with transferring.? 05/05/2023: Pt seen this am she is sitting up in the chair, in no respiratory distress, denies any chest pain at this time
--- NOTE | 2023-05-07 14:09 | WPDHPUPDATE1 ---
History and Physical Update Update Date/Time: 05/07/23 14:09 History and Physical has been reviewed, including an updated exam of the patient. There are NO changes in the patient's condition. Risks, benefits, and alternatives have been discussed and questions answered. Patient agrees to proceed with procedure.
== END 2023-05-05 18:48 | DRG 482 ==
LOC: ANHED 12:38 → ANH3MEDSUR 15:17
PROVIDERS: Internal Medicine; Orthopaedic Surgery; Physician Assistant; Admitting Provider Internal Medicine; Emergency Provider Nurse Practitioner; PCP Family Medicine; Visit Provider Nurse Practitioner
PROC: 0QH634Z Insertion of Internal Fixation Device into Right Upper Femur, Percutaneous Approach (ICD-10-PCS; principal; 2023-04-28 08:00)
DX: S72.011A Unspecified intracapsular fracture of right femur, initial encounter for closed fracture (principal); W01.0XXA Fall on same level from slipping, tripping and stumbling without subsequent striking against object, initial encounter; D64.9 Anemia, unspecified; E87.6 Hypokalemia; F41.9 Anxiety disorder, unspecified; R03.0 Elevated blood-pressure reading, without diagnosis of hypertension; Z87.891 Personal history of nicotine dependence
CPT/HCPCS: 36415; 70450; 71045; 71275; 73502; 73700; 80048; 80053; 81001; 81003; 82607; 82728; 82746; 83540; 83550; 83735; 84443; 85025; 85027; 87086; 87088; 93005; 96374; 97110; 97112; 97116; 97162; 97165; 97530; 97535; 99199; 99285; A9270; C1713; J0690; J1650; J2270; J3010; J7120; Q9967

== ENCOUNTER 2023-08-19 12:03 | Outpatient (CLI) | payer MEDICARE, SELFPAY ==
[2023-08-19 13:14] LABS: Basophils Percent Auto 0.6 % (0.2-1.2); Eosinophils Absolute Auto 0.1 K/mm3 (0-0.3); Eosinophils Percent Auto 2.1 % (0-4.4); Hematocrit 37.9 % (37.0-47.0); Immature Granulocyte Absolute 0.01 K/mm3 (0.00-0.031); Immature Granulocyte Percent A 0.2 % (0-0.5); Lymphocytes Absolute Auto 1.92 K/mm3 (0.9-3.2); Lymphocytes Percent Auto 29.1 % (18.3-44.2); Mean Corpuscular HGB Conc 31.7 g/dl (32-36); Mean Corpuscular Hemoglobin 31.1 pg (26-34); Mean Corpuscular Volume 98.2 fl (80-100); Mean Platelet Volume 10.2 fl (7.4-10.4); Monocytes Absolute Auto 0.4 K/mm3 (0.1-0.6); Monocytes Percent Auto 6.7 % (2.6-8.5); Neutrophils Absolute Auto 4.1 K/mm3 (1.3-6.7); Neutrophils Percent Auto 61.3 % (45.5-73.1); Platelet Count Result 214 k/mm3 (150-375); Red Blood Count 3.86 M/mm3 (4.2-5.4); Red Cell Distribution Width 14.5 % (11.5-14.5); White Blood Count 6.6 K/mm3 (4.5-10.0)
[2023-08-19 13:25] LABS: Albumin Level 4.6 g/dL (3.5-5.1); Estimated Glomerular Filt Rate > 60; Glucose 91 mg/dL (65-110)
[2023-08-19 13:28] LABS: Urine Cotinine NEGATIVE
[2023-08-19 20:52] LABS: Hemoglobin A1C 5.1 % (<5.7)
== END 2023-08-19 12:04 | disposition home or self-care (01) ==
LOC: ANHSURGERY 12:06
PROVIDERS: PCP Family Medicine; Visit Provider Orthopaedic Surgery
DX: M16.12 Unilateral primary osteoarthritis, left hip (principal); Z01.818 Encounter for other preprocedural examination
CPT/HCPCS: 80307; 82040; 82565; 82947; 83036; 85025; 86850; 86900; 86901

== ENCOUNTER 2023-08-27 01:07 | Day surgery (SDC) | payer MEDICARE, SELFPAY ==
--- NOTE | 2023-08-19 11:41 | PC.NURSE ---
PRE-OP INSTRUCTIONS, PLEASE READ CAREFULLY Report to the Outpatient Waiting Room, entrance under the green pavilion located off [facility], at time _0600_ on date _08/27/23_. Planned Procedure Time: _0730_. PACK A SMALL OVERNIGHT BAG AND LEAVE IN THE CARE ALONG WITH YOUR WALKER Time changes happen often and if your time is changed the preop area will call you the afternoon before. - You and your visitor will be asked to self-screen and do not enter if you have any COVID symptoms. - A mask is optional within the hospital at this time. -VISITING HOURS 8AM-8PM Patients may have clear liquids (water, carbonated beverages, clear teas, apple juice) until 3 hours prior to surgery (0430 AM) with a maximum of 20 ounces. - No food from midnight until time of surgery Take the following medications with a SIP of water the morning of surgery: _AMLODIPINE, GABAPENTIN, SERTRALINE, & TYLENOL IF NEEDED_ DO NOT STOP ANY OF YOUR OTHER PRESCRIPTION MEDICATIONS PRIOR TO SURGERY ?EXCEPT THE FOLLOWING Medications to discontinue per ANESTHESIA - _VITAMINS 3 DAYS PRIOR TO SURGERY, Date to take last dose 08/23/23_ Please no make-up, nail [place] ir[place], hairspray, perfume, deodorant, or body powder the day of surgery. No jewelry (including any body piercings) or valuables the day of surgery, leave them at home. Please take a shower or bath the night before, or the morning of, surgery with an antibacterial soap. Wear comfortable, loose fitting clothing. - Jewelry must be removed prior to entering the operating room. Rings and piercings that are not removed may be cut off. - The hospital will not accept responsibility for valuables. - Please leave all valuables, including medications, at home the day of surgery. If you are going home after surgery, a licensed transit bus driver must drive you home. - NO public transportation without another adult if you receive anesthesia. - We recommend that an adult stay with you for 24 hours following discharge. - We also recommend that you do not drive, make important decision, drink alcoholic beverages, or take any drugs that were not prescribed by your health care provider for at least 24 hours after your discharge time. Follow any additional instructions given to you from your surgeon. If you or anyone in your household have experienced Covid symptoms in the past week, please notify your surgeon or the nurse liaison at the phone number below for possible testing. Instructions given to _PATIENT & GRANDDAUGHTER (KATE)_and asked if any additional questions and then verbalized understanding. Patient advised to call surgeon office or pre surgery nurse liaison [phone] if any additional questions.
[2023-08-19 12:33] VITALS: BP 154/64; PULSE 80; RESP 18; TEMP 37.1; O2SAT 98; BMI 22.8
--- NOTE | 2023-08-26 07:50 | PM.IMHP ---
H&P: HPI History of Present Illness Date/Time: 08/26/23 07:50 Chief Complaint: Patient has left hip pain due to severe osteoarthritis with erosive change. She presents for left total hip arthroplasty. Review of Systems Musculoskeletal: Musculoskeletal: Reports arthralgias, Reports joint swelling and Reports stiffness PMFSH Past Medical History Medical History Anemia Depression Surgical History Surgical History History of surgery on right wrist Subcapital fracture of right hip Pinning in-situ April 28, 2023 Family History Family History Other Family history unknown Social History Social History Social History: Surrogate medical decision maker: Carol Banks, granddaughter. Code status: Full code. Smoking status: Former smoker Tobacco type: cigarettes Second hand tobacco smoke exposure: No Additional smoking assessment comments: PT UNABLE TO RECALL SMOKING HX-STATES QUIT >40+YRS AGO-DENIES TOBACCO USE Alcohol intake: current Drinks per week: 24 Alcohol use details: 3 BEERS/DAILY-STATES HAS CUT BACK PAST MONTH Substance use: never Substance use type: does not use Do You Feel Safe in your Home?: Yes Lack of Transportation: No Lack of Food: Never True Current Housing: I Have Housing Concerned About Future Housing: No Difficulty Paying Gas/Electric Bills: No Difficulty Paying for Meds: No Currently Unemployed: No Education: High School Diploma/GED Difficulty w/ Childcare or Family Care: No Living arrangements: alone Occupation/Education: retired Spiritual care concerns: No Meds Home Medications and Allergies Home Medications Medication Instructions Recorded Confirmed Type sertraline 100 mg tablet 100 mg PO DAILY 04/27/23 08/19/23 History amlodipine 5 mg tablet (Norvasc) 5 mg PO QAM 30 days #30 tabs 05/14/23 08/19/23 Rx gabapentin 300 mg capsule See Rx Instructions .Route .COMPLEX 06/26/23 08/19/23 History acetaminophen 500 mg tablet 1,500 mg PO QID PRN Pain 08/19/23 08/19/23 History ascorbic acid (vitamin C) 500 mg 1,000 mg PO DAILY 08/19/23 08/19/23 History tablet (Vitamin C) cholecalciferol (vitamin D3) 1 tab-cap DAILY 08/19/23 08/19/23 History cyanocobalamin (vitamin B-12) 1,000 mcg PO DAILY 08/19/23 08/19/23 History 1,000 mcg tablet diphenhydramine HCl 25 mg tablet 25 mg PO TID PRN Congestion 08/19/23 08/19/23 History (Benadryl Allergy) famotidine 20 mg tablet 40 mg PO QAM 08/19/23 08/19/23 History hydrocodone 5 mg-acetaminophen 325 1 tablet PO HS 08/19/23 08/19/23 History mg tablet rivaroxaban 10 mg tablet (Xarelto) 10 mg PO DAILY PE prophylaxis s/p 08/22/23 Rx hip replacement 21 days #21 tabs Allergies Allergy/AdvReac Type Severity Reaction Status Date / Time tramadol AdvReac Confusion Verified 08/19/23 12:20 Exam Narrative: Patient has pain left hip with any manipulation. Internal rotation 0 external rotation of 30. Positive Stinchfield test and pain with manipulation. She walks with an antalgic gait. Eyes: General: appearance normal, both eyes and all related structures Neck: Neck: supple Resp: Effort & Inspection: normal respiratory effort Cardio: Rate: regular rate Rhythm: regular rhythm Assessment and Plan Assessment and plan (1) Osteoarthritis of left hip: Code(s): M16.12 - Unilateral primary osteoarthritis, left hip Status: Acute Assessment and Plan: Patient has severe osteoarthritis left hip. She would like proceed with the left total hip arthroplasty. This is planned before her fall where she sustained a right femoral neck fracture. The femoral neck fracture appears to have healed and her left hip is the main problem at this point. I have discussed treatmen
[2023-08-27] VITALS (13 sets, daily range): BP systolic 92–150; BP diastolic 42–72; PULSE 70–95; RESP 12–20; TEMP 36.2–36.9; O2SAT 92–100; BMI 23.1
--- NOTE | ~2023-08-27 | XR_ITS ---
EXAMINATION: XR surgery orthopedic DATE: 08/27/2023 09:22 INDICATION: Total left hip arthroplasty. TECHNIQUE: 3 intraoperative views of the pelvis were obtained. COMPARISON: Pelvis radiograph 04/27/2023 FINDINGS: There is an old healed fracture of neck of right femur with internal fixation with 3 lag sc rews. The first image demonstrates a left-sided acetabular cup and osteotomy of the proximal femur. T he second image demonstrates a broach in the proximal femur. The third image demonstrates a total lef t hip arthroplasty in near-anatomic alignment. IMPRESSION: 1. Total left hip arthroplasty in near-anatomic alignment. Reviewed, dictated and finalized at location A.
[2023-08-27] MEDS: LACTATED RINGERS 1,000 ML 30 ML IV CONT ×2 (06:45→10:02)
--- NOTE | 2023-08-27 06:47 | WPDHPUPDATE1 ---
History and Physical Update Update Date/Time: 08/27/23 06:47 History and Physical has been reviewed, including an updated exam of the patient. There are NO changes in the patient's condition. Risks, benefits, and alternatives have been discussed and questions answered. Patient agrees to proceed with procedure.
[2023-08-27] MEDS: ACETAMINOPHEN 500 MG TABLET 1000 MG PO (06:59)
[2023-08-27] MEDS: TRANEXAMIC ACID 1,000MG/ISO100 1,000 MG/100 ML BAG 200 MG IVPB (07:00)
[2023-08-27] MEDS: VANCOMYCIN 750 MG/NS 250 ML BAG 250 MG IVPB (07:10)
--- NOTE | 2023-08-27 07:21 | WPDANESEPPF ---
Anes - Initial Pre Proc Eval Procedure: Operation Date: 08/27/23 07:30 Proposed Procedures p Left Total Hip Arthroplasty - Pj Read MD Date/Time: 08/27/23 07:21 Surgeon: Pj Read MD Pre Op Diagnosis: OA left hip Patient Data Age: 82 Gender: F Height: 1.57 m Weight: 57.3 kg Last Vital Signs Temp 97.7 F 08/27/23 06:05 Pulse 79 08/27/23 06:05 Resp 16 08/27/23 06:05 BP 150/71 H 08/27/23 06:05 Pulse Ox 98 08/27/23 06:05 O2 Del Method Room Air 08/27/23 06:05 Allergies Allergy/AdvReac Type Severity Reaction Status Date / Time tramadol AdvReac Confusion Verified 08/27/23 06:40 Home Medications Medication Instructions Recorded Confirmed Type sertraline 100 mg tablet 100 mg PO DAILY 04/27/23 08/19/23 History amlodipine 5 mg tablet (Norvasc) 5 mg PO QAM 30 days #30 tabs 05/14/23 08/19/23 Rx gabapentin 300 mg capsule See Rx Instructions .Route .COMPLEX 06/26/23 08/19/23 History acetaminophen 500 mg tablet 1,500 mg PO QID PRN Pain 08/19/23 08/19/23 History ascorbic acid (vitamin C) 500 mg 1,000 mg PO DAILY 08/19/23 08/19/23 History tablet (Vitamin C) cholecalciferol (vitamin D3) 1 tab-cap DAILY 08/19/23 08/19/23 History cyanocobalamin (vitamin B-12) 1,000 mcg PO DAILY 08/19/23 08/19/23 History 1,000 mcg tablet diphenhydramine HCl 25 mg tablet 25 mg PO TID PRN Congestion 08/19/23 08/19/23 History (Benadryl Allergy) famotidine 20 mg tablet 40 mg PO QAM 08/19/23 08/19/23 History hydrocodone 5 mg-acetaminophen 325 1 tablet PO HS 08/19/23 08/19/23 History mg tablet rivaroxaban 10 mg tablet (Xarelto) 10 mg PO DAILY PE prophylaxis s/p 08/22/23 Rx hip replacement 21 days #21 tabs Patient hx anesthesia problems: none Family hx anesthesia problems: none Results Review: All pre-operative results and documents have been reviewed as part of the pre-operative evaluation. PMFSH Past Medical History Medical History Anemia Depression Surgical History Surgical History History of surgery on right wrist Subcapital fracture of right hip Pinning in-situ April 28, 2023 Family History Family History Other Family history unknown Social History Social History Social History: Surrogate medical decision maker: Carol Banks, granddaughter. Code status: Full code. Smoking status: Former smoker Tobacco type: cigarettes Second hand tobacco smoke exposure: No Additional smoking assessment comments: PT UNABLE TO RECALL SMOKING HX-STATES QUIT >40+YRS AGO-DENIES TOBACCO USE Alcohol intake: current Drinks per week: 24 Alcohol use details: 3 BEERS/DAILY-STATES HAS CUT BACK PAST MONTH Substance use: never Substance use type: does not use Do You Feel Safe in your Home?: Yes Lack of Transportation: No Lack of Food: Never True Current Housing: I Have Housing Concerned About Future Housing: No Difficulty Paying Gas/Electric Bills: No Difficulty Paying for Meds: No Currently Unemployed: No Education: High School Diploma/GED Difficulty w/ Childcare or Family Care: No Living arrangements: alone Occupation/Education: retired Spiritual care concerns: No Anes - Eval Final PreProcedure Day of Procedure 08/27/23 07:21 Patient weight: normal Heart: regular rate and rhythm Lungs: clear to auscultation Airway: Mallampati scale class II Neurological: alert and oriented Last oral intake: >/= 8 hours ASA classification: III Emergent: no Anesthetic plan: proceed Anesthesia type and monitoring: general ETT and standard monitoring Results Review: All pre-operative results and documents have been reviewed as part of the pre-operative evaluation. Informed Consent: The patient's anesthetic plan and its attendant
[2023-08-27] MEDS: ceFAZolin 2 GM/D5W 50 ML 2 GM/50 ML BAG IVPB ×2 (07:29→18:30)
[2023-08-27] MEDS: BUPIVACAINE/EPINEPHRINE 0.5% 10 ML VIAL 30 ML INFILTRATE (08:18)
--- NOTE | 2023-08-27 09:28 | P.OP_ITS ---
Procedure Note - Detailed Date of Procedure 08/27/23 Pre-op Diagnosis Osteoarthritis left hip Post-op Diagnosis Same Procedure Performed Left Total Hip Surgeon Pj Read MD [employer] Jas Anesthesia General Indications Pain and arthritis Description of Procedure Patient was brought to the operating room #7, and an anesthetic was administered. The patient was placed with the LEFT side up and steriley prepped and draped in the usual manner. Longitudinal incision was done, dissection carried down to the fascia. A Hardinge type approach was used and the femoral head was dislocated anteriorly. Femoral head was removed a finger breath above the lesser trochanter. The acetabulum was serially reamed to accept a 48mm component. This was impacted into place and secured with 2 25mm screws. A high wall liner was placed. The femur was reamed and broached to accept a #6 component which was impacted into place. A plus 0 head and neck were placed and the hip was put through full range of motion. The hip was noted to be stable. The wounds were then closed in a layered fashion using #5 ethibond, 2 vicryl, 2- 0 vicryl and susan. Patient left the operating room in satisfactory condition. Surgery was made more difficult by her osteoporotic bone and shallow acetabulum. Implants Biomet Femur Joe Multi Hole Cup Estimated Blood Loss 600 Drains No Packing No Pathology None sent Complications No immediate complications Condition Stable Disposition PACU [facility] Billing Surgery - Charge Forward: Surgery Billing (19300 LEFT TOTAL HIP)
[2023-08-27] MEDS: fentaNYL CITRATE INJ (*CRX) 100 MCG/2 ML VIAL 25 MCG IV PUSH ×8 (10:18→10:44)
[2023-08-27] MEDS: SODIUM CHLORIDE 0.9% IV 1,000 ML 125 ML IV CONT (11:52)
[2023-08-27] MEDS: HYDROmorphone HCL INJ (*CRX) 1 MG/ML SYR IV PUSH (11:54)
--- NOTE | 2023-08-27 14:09 | PM.IMCN ---
Assessment and Plan Assessment and plan (1) Osteoarthritis of left hip: Code(s): M16.12 - Unilateral primary osteoarthritis, left hip Status: Acute Assessment and Plan: patient underwent a total left hip replacement on 08/27/23, done by Jacek GOYAL. - ambulate with assistance and up to chair - apply gel pads - hip precautions in place - use IS - neurovasc checks - see order for intervals - SCDs and TEDs - resume diet - pain management - zofran PRN for nausea - monitor labs in AM - CBC and BMP - bowel regimen: docusate/senna, polyethylene glycol - maintenance fluids: NS 125 mL/hr x 8hrs - prophylactic atb - Ancef - PT/OT (2) Anemia: Code(s): D64.9 - Anemia, unspecified Status: Acute Assessment and Plan: - Hgb 12.0 on 08/19/23, previously 10.7 on 05/06/23 - trend cbc - holding vitamin c, d3, and b12 (3) HTN (hypertension): Code(s): I10 - Essential (primary) hypertension Status: Acute Assessment and Plan: - chronic, currently 92/47 - continue home medications: amlodipine 5 mg QAM on 08/27 - monitor Plan patient underwent a total left hip replacement on 08/27/23, done by Jacek GOYAL. PT/OT eval, hip precautions, and diet resumed. Home Meds/Chronic Conditions - continued sertraline, amlodipine. all others held, see JUN. Diet: regular GI Prophylaxis: pantoprazole QAM DVT Prophylaxis: SCDs and TEDs Lines: peripheral Code Status: full code HPI Date of Consult Consult date: 08/27/23 Requesting Physician: Pj Read MD Primary Care Provider: Liz FinleyMD Consult Narrative Reason for consult: Medical Managment Narrative: 82 y/o F presented here for surgical management of severe osteoarthritis of the left hip with PMH of anemia, osteoarthritis, and depression. Patient has had ongoing chronic left hip pain for the past 3 years. Had planned left total hip arthroplasty. However this was deferred due to patient a right femoral neck fracture on 04/27/23 that required surgical management (done on 04/28/23). Left hip pain has been limiting to her daily activities, was using a walker with a seat before she sustained the fracture in Mar/Apr and after has been utilizing a wheelchair for assistance with mobility. Reports mild discomfort in her L hip post operatively. No nausea or vomiting. LBM on 08/25 in the evening. initial VS at presentation: 98.7? F, HR 80, R 18, 154/64, and 98% on RA. preop workup: no leukocytosis, no anemia, creatinine 0.8 and GFR >60, no electrolyte derangements. Review of Systems Review of Systems: All systems reviewed & are unremarkable except as noted in HPI and below PMFSH Past Medical History Medical History Anemia Depression HTN (hypertension) Surgical History Surgical History History of surgery on right wrist History of total left hip arthroplasty 08/27/23 Subcapital fracture of right hip Pinning in-situ April 28, 2023 Family History Family History Other Family history unknown Social History Social History Social History: Surrogate medical decision maker: Carol Banks, granddaughter. Code status: Full code. Smoking status: Former smoker Tobacco type: cigarettes Second hand tobacco smoke exposure: No Additional smoking assessment comments: PT UNABLE TO RECALL SMOKING HX-STATES QUIT >40+YRS AGO-DENIES TOBACCO USE Alcohol intake: current Drinks per week: 24 Alcohol use details: 3 BEERS/DAILY-STATES HAS CUT BACK PAST MONTH Substance use: never Substance use type: does not use Do You Feel Safe in your Home?: Yes Lack of Transportation: No Lack of Food: Never True Current Housing: I Have Housing Concerned About Future Housing: No Difficulty
[2023-08-27] MEDS: SENNA/DOCUSATE SODIUM TABLET 2 TAB PO (17:07)
[2023-08-27] MEDS: IBUPROFEN IV 800 MG/200 ML 800 MG/200 ML BAG 400 MG IVPB (17:08)
[2023-08-27] MEDS: HYDROcodone/acetaminophen (*CRX) 7.5-325 MG TABLET 1 TAB PO (20:59)
[2023-08-28] MEDS: ceFAZolin 2 GM/D5W 50 ML 2 GM/50 ML BAG IVPB ×2 (00:20→08:50)
[2023-08-28 00:21] VITALS: BP 145/47; PULSE 88; RESP 12; TEMP 36.7; O2SAT 97
[2023-08-28] MEDS: HYDROcodone/acetaminophen (*CRX) 7.5-325 MG TABLET 1 TAB PO ×2 (01:00→06:00)
[2023-08-28 04:44] VITALS: BP 137/59; PULSE 87; RESP 12; TEMP 36.6; O2SAT 97
[2023-08-28 05:35] LABS: Basophils Percent Auto 0.3 % (0.2-1.2); Eosinophils Percent Auto 0.2 % (0-4.4); Hematocrit 24.8 % (37.0-47.0); Immature Granulocyte Absolute 0.02 K/mm3 (0.00-0.031); Immature Granulocyte Percent A 0.3 % (0-0.5); Lymphocytes Absolute Auto 1.39 K/mm3 (0.9-3.2); Lymphocytes Percent Auto 21.1 % (18.3-44.2); Mean Corpuscular HGB Conc 32.3 g/dl (32-36); Mean Corpuscular Volume 99.2 fl (80-100); Mean Platelet Volume 10.7 fl (7.4-10.4); Monocytes Absolute Auto 0.6 K/mm3 (0.1-0.6); Monocytes Percent Auto 8.8 % (2.6-8.5); Neutrophils Absolute Auto 4.6 K/mm3 (1.3-6.7); Neutrophils Percent Auto 69.3 % (45.5-73.1); Platelet Count Result 154 k/mm3 (150-375); Red Cell Distribution Width 14.1 % (11.5-14.5); White Blood Count 6.6 K/mm3 (4.5-10.0)
[2023-08-28 05:45] LABS: Anion Gap 5 mmol/L (4-12); Blood Urea Nitrogen 16 mg/dL (7-17); Calcium 8.7 mg/dL (8.4-10.2); Carbon Dioxide 30 mmol/L (22-30); Chloride 109 mmol/L (98-107); Estimated CRCL calculation 37 ml/min; Estimated Glomerular Filt Rate > 60; Glucose 101 mg/dL (65-110); Potassium 4.1 mmol/L (3.4-5.0); Sodium 144 mmol/L (137-145)
--- NOTE | 2023-08-28 06:51 | PM.PNORT ---
Progress Note: A&P Assessment and Plan (1) History of total left hip arthroplasty: Code(s): Z96.642 - Presence of left artificial hip joint Status: Acute Assessment and Plan: S/P Left ZEYAD. Ambulate today. Doing well. Subjective Subjective Date/Time Seen: 08/28/23 06:51 Post Op day: 1 Principal diagnosis: Left ZEYAD for osteoarthritis Review of Systems Musculoskeletal: Musculoskeletal: Reports abnormal gait, Reports arthralgias and Reports joint swelling Exam Narrative: Wiggles toes. Dressing intact. Objective Data Vital Signs Vital Signs: Vital Signs - 24 hr 08/27/23 10:02 08/27/23 10:15 08/27/23 10:30 Temperature 97.5 F L Pulse Rate 70 78 86 Respiratory Rate 12 20 12 Blood Pressure 103/49 L 116/60 117/54 L Pulse Oximetry 100 100 92 Oxygen Delivery Simple Face Mask Simple Face Mask Room Air Oxygen Flow Rate 8 8 08/27/23 10:45 08/27/23 11:00 08/27/23 11:20 Temperature 97.2 F L Pulse Rate 87 88 95 Respiratory Rate 12 12 18 Blood Pressure 121/48 L 110/72 133/56 L Pulse Oximetry 98 100 99 Oxygen Delivery Nasal Cannula Nasal Cannula Oxygen Flow Rate 2 2 08/27/23 11:35 08/27/23 12:25 08/27/23 13:18 Temperature 97.2 F L Pulse Rate 93 Respiratory Rate 16 Blood Pressure 118/53 L Pulse Oximetry 99 95 Oxygen Delivery Room Air Room Air Oxygen Flow Rate 08/27/23 12:05 08/27/23 13:05 08/27/23 16:48 Temperature 97.7 F 97.5 F L 98.4 F Pulse Rate 79 91 89 Respiratory Rate 18 16 18 Blood Pressure 103/52 L 92/47 L 105/42 L Pulse Oximetry 98 99 92 Oxygen Delivery Oxygen Flow Rate 08/27/23 20:00 08/27/23 20:48 08/28/23 00:21 Temperature 98.5 F 98.0 F Pulse Rate 81 88 Respiratory Rate 13 12 Blood Pressure 100/42 L 145/47 H Pulse Oximetry 94 97 Oxygen Delivery Room Air Oxygen Flow Rate 08/28/23 04:44 Temperature 97.8 F Pulse Rate 87 Respiratory Rate 12 Blood Pressure 137/59 L Pulse Oximetry 97 Oxygen Delivery Oxygen Flow Rate Intake/Output Intake/Output: Intake & Output 08/25/23 08/26/23 08/27/23 08/28/23 23:59 23:59 23:59 23:59 Intake Total 1020 50 Balance 1020 50 Meds/Results Medications: Active Medications Generic Name Dose Route Start Last Admin Trade Name Freq PRN Reason Stop Dose Admin Hydrocodone Bitart/Acetaminophen 1 tab 08/27/23 11:03 Hydrocodone/Acetaminophen (*Crx) 5-325 Mg Tablet PO Q4H PRN Pain Rated 4-6 Hydrocodone Bitart/Acetaminophen 1 tab 08/27/23 11:03 08/28/23 06:00 Hydrocodone/Acetaminophen (*Crx) 7.5-325 Mg Tablet PO 1 tab Q4H PRN Administration Pain Rated 7-10 Amlodipine Besylate 5 mg 08/27/23 12:00 08/27/23 12:04 Amlodipine Besylate 5 Mg Tablet PO Not Given Q[facility] Celecoxib 200 mg 08/28/23 09:00 Celecoxib 200 Mg Capsule PO DAILY JOSE Cyclobenzaprine HCl 10 mg 08/27/23 11:03 Cyclobenzaprine Hcl 10 Mg Tablet PO Q8H PRN Muscle Spasm Hydromorphone HCl 1 mg 08/27/23 11:03 08/27/23 11:54 Hydromorphone Hcl Inj (*Crx) 1 Mg/Ml Syr IV PUSH 1 mg Q2H PRN Administration Breakthrough Pain Rated 7-10 or NPO Hydromorphone HCl 0.5 mg 08/27/23 11:03 Hydromorphone Hcl Inj (*Crx) 1 Mg/Ml Syr IV PUSH Q2H PRN Breakthrough Pain Rated 4-6 or NPO Cefazolin Sodium 2 gm in 50 mls @ 100 mls/hr 08/27/23 16:00 08/28/23 00:50 Ancef 2 Gm/D5w 50 Ml IVPB 08/28/23 08:29 Infused Q8H JOSE Infusion Ibuprofen 800 mg in 200 mls @ 400 mls/hr 08/27/23 11:03 08/27/23 17:38 Caldolor 800 Mg/200 Ml IVPB Infused Q6H PRN Infusion Breakthrough Pain Rated 1-3 or NPO Naloxone HCl 0.1 mg 08/27/23 11:03 Naloxone Hcl 0.4 Mg/Ml Vial IV PUSH Q2M PRN Opiate Reversal Ondansetron HCl 4 mg 08/27/23 11:03 Ondansetron Inj 4 Mg/2 Ml Vial IV PUSH Q4H PRN Nausea And Vomiting Pantoprazole Sodium 40 mg 08/28/23 09:00 Pantoprazole 40 Mg Tablet PO PEDRO Kay
[2023-08-28 07:50] VITALS: BP 107/43; PULSE 87; RESP 16; TEMP 36.8; O2SAT 97
--- NOTE | 2023-08-28 08:06 | PM.DS ---
DS: Admitting Diagnosis Discharge Date 08/27/2023 Admitting Diagnosis Osteoarthritis left hip. DS: Discharge Diagnosis Discharge Diagnosis (1) History of total left hip arthroplasty: Code(s): Z96.642 - Presence of left artificial hip joint Status: Acute Plan Total hip arthroplasty for osteoarthritis left hip. DS: Summary Hospital Course Hospital Course: Patient underwent total hip arthroplasty 043 of osteoarthritis left hip. She has done well postoperatively and can be dismissed home. Dismissed medication [place] and doxycycline. She will also take Xarelto. She is to use a cane with just touch weight-bearing. Follow up in 2 weeks for sutures out. Status at Discharge Functional status at discharge: uses cane/walker Time Spent with Patient Time attestation: Total time spent providing and/or coordinating discharge services: Exam Narrative: Wiggles toes. Dressing intact. DS: Data Data Completed and Pending Labs on day of discharge: Labs from last 24 hours 08/28/23 04:47 WBC 6.6 RBC 2.50 L Hgb 8.0 L D Hct 24.8 L MCV 99.2 MCH 32.0 MCHC 32.3 RDW 14.1 Plt Count 154 MPV 10.7 H Immature Gran % (Auto) 0.3 Neut % (Auto) 69.3 Lymph % (Auto) 21.1 [place] % (Auto) 8.8 H Eos % (Auto) 0.2 Baso % (Auto) 0.3 Lymph # (Auto) 1.39 [place] # (Auto) 0.6 Eos # (Auto) 0.0 Baso # (Auto) 0.0 Abs Immat Gran (auto) 0.02 Absolute Neuts (auto) 4.6 Absolute Nucleated RBC 0.000 Nucleated RBC % 0.0 Sodium 144 Potassium 4.1 Chloride 109 H Carbon Dioxide 30 Anion Gap 5 BUN 16 Creatinine 0.80 Estim Creat Clear Calc 37 Estimated GFR > 60 Glucose 101 Calcium 8.7 Discharge Plan Discharge Attending physician on discharge: Pj Read Discharging Clinician: Pj Read Patient Disposition: Home Health Service Discharge Instructions: Dr. Pj Read M.D [id number] [address] POST-OPERATIVE DISCHARGE INSTRUCTIONS TOTAL HIP ARTHROPLASTY 1. Move toes/feet up and down every hour while awake. 2. Be up walking every hour while awake. 3. Use walker pulpwood dealer if instructed to use walker pulpwood dealer.When you are allowed to use the cane, use the cane in the opposite hand. 4. When resting, do not rest in the chair. Rather, lie on your back, with back flat, and the leg elevated above heart to minimize swelling. You may put a pillow under your head. Do not rest in a chair. Resting in the chair results in swelling in the leg. Significant swelling could indicate a blood clot and if this occurs, call the office (or go to the ER) to have a venous ultrasound performed. Its ok to sit in the chair to eat and use the toilet and to receive a guest but sitting in a chair will cause your leg to swell. so try to minimize sitting in a chair. 5. Wound Care: Apply a folded 4x4 sponge to incision and hold with crossing strips of 1 inch Transpore tape. 6. Follow weight bearing status as instructed: 7. May shower. Remove dressing before shower and reapply dressing after shower. Patient Instructions: Antibiotic Form Stand Alone Forms: General Discharge Instructions, General Discharge Information Follow-up/Referrals: Pj Read MD [Physician] - Discharge Medications: New hydrocodone-acetaminophen 7.5-325 mg tablet 1 tablet PO Q4H PRN (Reason: pain) Qty: 40 0RF doxycycline hyclate 100 mg tablet 100 mg PO DAILY Qty: 10 0RF Continued cyanocobalamin (vitamin B-12) 1,000 mcg Tablet 1,000 mcg PO DAILY acetaminophen 500 mg Tablet 1,500 mg PO QID PRN (Reason: Pain) ascorbic acid (vitamin C) [Vitamin C] 500 mg Tablet 1,000 mg PO DAILY diphenhydramine HCl [Benadryl Allergy] 25 mg Tablet 25 mg PO TID PRN (Reason: Congestion) cholecalciferol (vitamin D3) 1 tab-cap DAILY hydrocodone-acetaminophen 5-325 mg tablet 1 tablet PO HS famotidine 20 mg ta
[2023-08-28 08:49] VITALS: O2SAT 93
[2023-08-28] MEDS: CELECOXIB 200 MG CAPSULE PO (08:50)
[2023-08-28] MEDS: PANTOPRAZOLE 40 MG TABLET PO (08:50)
[2023-08-28] MEDS: polyethylene glycoL 3350 17 GM POWD.PACK PO (08:50)
[2023-08-28] MEDS: amLODIPine BESYLATE 5 MG TABLET PO (08:50)
[2023-08-28] MEDS: SENNA/DOCUSATE SODIUM TABLET 2 TAB PO (08:50)
[2023-08-28] MEDS: SERTRALINE HCL 50 MG TABLET 100 MG PO (08:50)
[2023-08-28] MEDS: HYDROcodone/acetaminophen (*CRX) 5-325 MG TABLET 1 TAB PO (10:15)
== END 2023-08-28 11:30 | disposition home health service (06) ==
LOC: ANHSURGERY 05:56 → ANH3MEDSUR 11:05
PROVIDERS: PCP Family Medicine; Visit Provider Orthopaedic Surgery
PROC: (CPT 27130; principal; 2023-08-27 07:30)
DX: M16.12 Unilateral primary osteoarthritis, left hip (principal); I10 Essential (primary) hypertension; D64.9 Anemia, unspecified; F32.A Depression, unspecified; Z79.01 Long term (current) use of anticoagulants; Z98.890 Other specified postprocedural states; Z87.891 Personal history of nicotine dependence
CPT/HCPCS: 27130; 36415; 80048; 80307; 82040; 82565; 82947; 83036; 85025; 86850; 86900; 86901; 97110; 97116; 97161; 97165; 97530; 97535; 99199; A9270; C1776; J0690; J1100; J1170; J1741; J2371; J2405; J2704; J3010; J3370; J7030; J7120

== ENCOUNTER 2024-10-20 13:24 | Outpatient (CLI) | payer MEDICARE, SELFPAY ==
--- NOTE | ~2024-10-20 | DEXA_ITS ---
Bone Density Report Name: BJORN COREA Age: 84 Sex: Female Ethnicity: White Date of : 1940 Indication: postmenopausal; screening for osteoporosis; height loss; prior fracture; cancer; Referring Provider: ALICIA, JANICE Mckeon Study: Bone densitometry was performed. Exam Date: October 20, 2024 Accession number: [id number] Bone Density: Region BMD T-score Z-score Classification AP Spine(L1-L4) 1.130 0.8 3.6 Normal World Health Organization criteria for BMD impression classify patients as: Normal (T-score at or above -1.0), Osteopenia (T-score between -1.0 and -2.5), or Osteoporosis (T-score at or below -2.5). Clinical Information Provided by Patient: Have had a previous hip or vertebral fracture Has had a low trauma fracture Has used the following medications: Vitamin D Has the following medical conditions: Cancer, BASAL CELL 2023 Patient maximum height was 64 Menopause Age: 50 Does not regularly consume dairy products Drinks caffeinated beverages Onset of menses at age 15 Number of children 2 Impression: The patient has normal bone mass. The patient has risk factors, including: previous fracture. Discussion: INCREASED RISK OF FRACTURE DUE TO HISTORY OF FRACTURE. The patient's previous fracture puts the patient at high risk of a future fracture. In untreated patients, the risk of osteoporotic fracture increases approximately two-fold for each 1.0 SD decrease in T-score. Low bone density is not the only risk factor for fracture; also consider factors such as patient's age, frailty or poor health, risk of falling, risk of injury, previous osteoporotic fracture, family history of osteoporosis, cigarette smoking, low body weight, etc. Not everyone with a low trauma fracture has osteoporosis; osteomalacia and other metabolic bone disorders should also be considered. Patients who have osteoporosis should be evaluated for specific diseases and conditions (secondary causes) that may cause or contribute to bone loss and fracture risk. National Osteoporosis Foundation (NOF) recommends pharmacologic intervention for patients with a prior hip or vertebral fracture regardless of BMD T-score. The patient should follow a healthful lifestyle (good nutrition with adequate calcium and vitamin D, and appropriate weight-bearing exercise). Follow-Up: Consider a repeat BMD and Vertebral Fracture Assessment (VFA) exam in 2 years or sooner if medically necessary, to reassess this patient's status. Reported by: CHUCK on 10/22/2024 1:33:00 PM. Reviewed, dictated and finalized at location A.
== END 2024-10-20 13:25 | disposition home or self-care (01) ==
PROVIDERS: PCP Family Medicine; Visit Provider Family Medicine
DX: Z78.0 Asymptomatic menopausal state (principal)
CPT/HCPCS: 77080